=== PATIENT | female | born 1980 | race Caucasian/White ===

== ENCOUNTER 2016-12-20 15:20 | Inpatient (IN) | payer MEDICAID ==
[~2016-12-20] VITALS: Ht 157.5 cm; Wt 65.0 kg
[~2016-12-20 15:20] MED LIST: METF500T4 PO
[2016-12-20 16:03] VITALS: Ht 157.5 cm; Wt 65.0 kg
[2016-12-20 16:05] VITALS: BP 110/60; PULSE 77; RESP 20
[2016-12-20] MEDS ORDERED: MAGNESIUM SULFATE 4 GM/100 ML 100 ML IV ONE (16:30)
[2016-12-20] MEDS ORDERED: ONDANSETRON 4 MG INJ IV PRN (16:30)
[2016-12-20] MEDS: LACTATED RINGER'S 1,000 ML IV SCH (16:41)
[2016-12-20] MEDS: BETAMET NA PHOS/AC(6 MG/ML) 5ML INJ IM SCH (16:41)
[2016-12-20] MEDS: MAGNESIUM SULFATE 20 GM/500 ML 500 ML IV SCH (17:08)
[2016-12-20 17:34] LABS: ADD SCAN DIFF NO
[2016-12-20 17:36] LABS: BASOPHIL # 0.1 10^3/ul (0.0-0.1); BASOPHILS % 0.7 % (0.0-2.0); EOSINOPHILS # 0.2 10^3/ul (0.0-0.5); EOSINOPHILS % 2.2 % (0.0-7.0); HEMATOCRIT 37.5 % (37.0-47.0); HEMOGLOBIN 12.2 g/dl (12.0-16.0); LYMPHOCYTES # 2.1 10^3/ul (0.8-2.9); LYMPHOCYTES % 18.8 % (15.0-51.0); MEAN CORPUSCULAR HEMOGLOBIN 29.6 pg (29.0-33.0); MEAN CORPUSCULAR HGB CONC 32.5 g/dl (32.0-37.0); MEAN PLATELET VOLUME 9.1 fl (7.4-10.4); MONOCYTE # 0.8 10^3/ul (0.3-0.9); MONOCYTES % 6.8 % (0.0-11.0); NEUTROPHIL # 7.7 10^3/ul (1.6-7.5); NEUTROPHILS % 70.5 % (39.0-77.0); PLATELET COUNT 292 10^3/UL (140-415); RED BLOOD COUNT 4.12 10^6/ul (4.20-5.40); RED CELL DISTRIBUTION WIDTH 13.9 % (11.5-14.5)
[2016-12-20 17:46] LABS: INR 1.02; PROTIME 13.4 Sec (12.2-14.2)
[2016-12-20 17:47] LABS: PARTIAL THROMBOPLASTIN TIME 24.6 Sec (25.0-35.0)
[2016-12-20 17:54] LABS: ALBUMIN 3.4 g/dl (3.3-4.9); BILIRUBIN,INDIRECT 0.2 mg/dl (0-1.1); BILIRUBIN,TOTAL 0.2 mg/dl (0.2-1.3); CALCIUM 8.4 mg/dl (8.4-10.2); CREATININE 0.55 mg/dl (0.44-1.00); POTASSIUM 4.1 mmol/L (3.5-5.1); TOTAL PROTEIN 6.8 g/dl (6.1-8.1)
[2016-12-20 18:42] LABS: ADD UMIC NO; URINE BILIRUBIN (Dip) NEGATIVE (NEGATIVE); URINE BLOOD (Dip) NEGATIVE (NEGATIVE); URINE COLOR LT. YELLOW (YELLOW); URINE GLUCOSE (Dip) NEGATIVE (NEGATIVE); URINE KETONES (Dip) 15 (NEGATIVE); URINE LEUKOCYTE ESTERASE (Dip) NEGATIVE (NEGATIVE); URINE NITRITE (Dip) NEGATIVE (NEGATIVE); URINE TOTAL PROTEIN (Dip) NEGATIVE (NEGATIVE); URINE UROBILINOGEN (Dip) 0.2 E.U./dL (0.1-1.0)
[2016-12-21] MEDS: MAGNESIUM SULFATE 20 GM/500 ML 500 ML IV SCH ×3 (02:18→21:52)
[2016-12-21] MEDS: LACTATED RINGER'S 1,000 ML IV SCH ×2 (03:08→16:39)
[2016-12-21] MEDS: FERROUS SULFATE (EC) 325 MG TAB PO SCH (08:59)
[2016-12-21] MEDS: DOCUSATE SODIUM 100 MG CAP PO SCH (08:59)
[2016-12-21] MEDS: MULTIVIT/MIN/FOLATE/IRON/PREN TAB PO SCH (08:59)
[2016-12-21] MEDS: ACETAMINOPHEN 325 MG TAB PO PRN (10:49)
--- NOTE | 2016-12-21 13:54 | CONS ---
DATE OF ADMISSION: 12/20/2016 DATE OF CONSULTATION: REFERRING PHYSICIAN: Brad Isidro MD HISTORY OF PRESENT ILLNESS: I was asked to talk with this mother who is 24.6 weeks with tw ins in labor with short cervix of 1.2 cm. I reviewed the chart. Mother is a 35-year-old 2, para 1, AB 0, living 1, with good care. EDC 04/05/2017. Mother's blood type is O positive, antibody negative, RPR nonreactive, HBsA g negative, rubella immune, HIV negative and GBS unknown. Estimated weight for twin A is 675 grams and twin B is 647 grams. They are dichorionic-diamniotic twins per the ultrasound. Mother is on magnesium sulfate and received 1 dose of betamethasone on 12/20/2016 at 1645 hours. I spoke with mother about the infants being extremely premature with extreme low weight and tw ins and being at risk for respiratory distress syndrome as well as risk for apnea. I discussed with the parents about CPAP administration, as well as oxygen administration, nasal IMV and possibly the need for intubation if the infants are extremely premature, also ventilatory therapy. Discussed ab out the risks and benefits of ventilatory therapy including risk for chronic lung disease, risk of i nfection and requirement for possible long-term ventilatory support. I also discussed about diureti c administration, risk for chronic lung disease and possible discharge home on oxygen. I also discu ssed about risk of apnea and treatment with caffeine and nasal IMV as well as CPAP. Discussed about risk of patent ductus arteriosus and treatment with indomethacin as well as possible ligation if un successful with indomethacin. Discussed about risk of intraventricular hemorrhage which is extremel y high at 24 weeks and also high risk for neurodevelopmental delay. Discussed about grading of intr aventricular hemorrhage and increased risk of developmental delay based on intraventricular hemorrha ge. Discussed about IV nutrition with TPN as well as Intralipids and feedings to be started when th e infant's respiratory status is stable. Discussed about tube feedings as well as benefits of breas t milk. Discussed about tube feedings initially to be followed by bottle and breast feeding as the approaches close to 33 to 34 weeks. Discussed about gastroesophageal reflux as well as risk for necrotizing enterocolitis. Discussed about the infants being on antibiotics initially and subse quently to be monitored for risk for infection and high risk of infection including mortality and mo rbidity at this extreme prematurity. Discussed about the procedures including umbilical arterial catheterization as well as umbilical adia ous catheterization and PICC line placement and risks and benefits of the procedures. I also discus sed about the possible requirement of several blood transfusions as well as blood products including platelet transfusions and FFP if needed. Discussed about the survival of 50 to 70% at 24 weeks' gestation and increasing survival with increa sing gestational age. I also discussed about mortality as well as morbidity and length of stay. Discussed about the risks and benefits of hospitalization and risk for oxygen dependency, retinopath y of prematurity, and neurodevelopmental delay at the time of discharge if the infants survive throu gh the period. All parent's questions were answered. Parents were very concerned about ex treme risk of mortality as well as morbidity. As parents had no further questions, the discussion was concluded. Thank you for the referral and we will continue to follow with you. Dictated By: EULALIA ZHU/ARLETTE Conf#: [id number] DID#: [id number]
--- NOTE | 2016-12-21 15:26 | PERINOTE ---
Date/Time of Note Date/Time of Note DATE: 12/21/16 TIME: 15:20 Assessment/Recommendations Other Assessments Patient with a short cervix at 25 weeks GA No current complaint of contractions Recommendations: Would continue current plan. When betamethasone is complete, would D/C magnesium and repeat the cervical length measurement. If the cervical length is not significantly changed, could consider discharging the patient to home on modified bedrest. OB Subjective Free Text/Dictaton Patient with twin admitted with a short cervix for betamethasone treatment and tocolysis. NOTE: chart states that the patient is allergic to penicillin. she states that this is an error. HD# 2 IUP @ 25weeks Complaints/Overnight events None Current Medications Current Medications Lactated Ringer's 1,000 ml @ 75 mls/hr [id number] IV Last administered on 03:08; Admin Dose 75 MLS/HR; Start 12/20/16 at 16:30 Magnesium Sulfate (Magnesium Sulfate 20 Gm/500 ml) 500 ml @ 50 mls/hr Q10H IV Last administered on 12/21/16 12:17; Admin Dose 50 MLS/HR; Start 12/20/16 at 17: 00 Betamethasone Acet/Betameth SodPhos (Celestone Soluspan) 12 mg Q24H IM Last administered on 12/20/16 16:41; Admin Dose 12 MG; Start 12/20/16 at 16:30; Stop 12/21/16 at 16:31 Prenat Multivit/ [place]/Iron/Folic Ac ( S) 1 tab DAILY PO Last administered on 12/21/16 08:59; Admin Dose 1 TAB; Start 12/21/16 at 09:00 Ferrous Sulfate (Ferrous Sulfate (Ec)) 325 mg DAILY PO Last administered on 12/21 08:59; Admin Dose 325 MG; Start 12/21/16 at 09:00 Docusate Sodium (Colace) 100 mg DAILY PO Last administered on 12/21/16 08:59; Admin Dose 100 MG; Start 12/21/16 at 09:00 Acetaminophen (Tylenol Tab) 650 mg Q4H PRN PO PAIN AND OR ELEVATED TEMP Last administered on 12/21/16 10:49; Admin Dose 650 MG; Start 12/20/16 at 16:30 Al Hydrox/Mg Hydrox/Simethicone (Mag-Al Plus) 30 ml Q6H PRN PO GASTROINTESTINAL UPSET; Start 12/20/16 at 16:30 Ondansetron HCl (Zofran Inj) 4 mg Q6H PRN IV NAUSEA AND/OR VOMITING; Start 12/20 at 16:30 Past Medical History Medical History: other (Gestational diabetes with her first ) Surgical History: no surgical history Para: 1 : 2 LMP (Females 10-50): Family History Significant Family History: heart disease, diabetes OB Admission Exam Physical Exam Vitals: Vital Signs Date Time Temp Pulse Resp B/P Pulse Ox O2 Delivery O2 Flow Rate FiO2 12/20/16 16:05 98.2 77 20 110/60 Room Air Abdomen: WNL Last 72 hours Lab Results CBC & BMP 12/20/16 17:25 Liver Function Test 12/20/16 17:25 Alanine Aminotransferase (ALT/SGPT) 27 Albumin 3.4 Alkaline Phosphatase 107 Aspartate Amino Transf (AST/SGOT) 22 Direct Bilirubin 0.00 Total Protein 6.8 Magnesium Level Test 12/21/16 00:41 12/21/16 05:58 12/21/16 12:40 Magnesium Level 5.3 *H 5.9 *H 5.7 *H Copies To: CC: RICH TURNER MD, MARIE H MD Dec 21, 2016 15:26
[2016-12-21] MEDS: BETAMET NA PHOS/AC(6 MG/ML) 5ML INJ IM SCH (16:34)
--- NOTE | 2016-12-21 22:07 | HP ---
Date/Time of Note Date/Time of Note DATE: 12/21/16 TIME: 21:56 OB - History Hx of Present Free Text/Dictation 36 y.o with twin gestation at 25weeks was admitted for short cervix 1.2cm discovered at clinic .no c/o uterine conractions perinatalogist recommaned for betamethasone and magnesium sulfate and repeat cervical length after d/c magnesium sulfate Chief Complaint: short cervix Estimated Due Date: Apr 05, 2017 : 2 Para: 1 Spontaneous : 0 Therapeutic : 0 Care: Good Care Ultrasounds: Normal mid trimester US Obstetrical Complications: Other (hypothyroidism) Past Family/Social History * Past Medical, Surgical, Family and Obstetric Histories reviewed from chart. Blood Type: O+ Rubella: immune RPR/VDRL: Negative GBS Status: Unknown HBsAG: Negative OB Admission Exam Vital Signs Vital Signs Vital Signs Date Time Temp Pulse Resp B/P Pulse Ox O2 Delivery O2 Flow Rate FiO2 12/20/16 16:05 98.2 77 20 110/60 Room Air Physical Exam HEENT: WNL Heart: Rhythm Normal Lungs: Clear, Equal Abdomen: WNL Extremities: Normal Reflexes: Normal Cervical Dilatation: other Effacement: 75% Station: Ballotable Membranes: Intact Amniotic Fluid: Unevaluable Accelerations: Accelerations Present Decelerations: No Decelerations Varibility: Minimum Contractions on Admission: None Last 72 hours Lab Results CBC & BMP 12/20/16 17:25 Liver Function Test 12/20/16 17:25 Alanine Aminotransferase (ALT/SGPT) 27 Albumin 3.4 Alkaline Phosphatase 107 Aspartate Amino Transf (AST/SGOT) 22 Direct Bilirubin 0.00 Total Protein 6.8 Hemoglobin A1C Test 12/21/16 19:05 Hemoglobin A1c 5.0 Magnesium Level Test 12/21/16 00:41 12/21/16 05:58 12/21/16 12:40 12/21/16 19:05 Magnesium Level 5.3 *H 5.9 *H 5.7 *H 5.6 *H OB Assessment/Plan Reason for admission: other Other Assessment: IUP25w with short cervix s/p x2 betamethasone on magnesium sulfate hypothyroidism Other plan: d/c magnesium sulfate tomorrow 1650 repeat cervical length RICH TURNER MD Dec 21, 2016 22:07
[2016-12-22] MEDS: LACTATED RINGER'S 1,000 ML IV SCH ×2 (04:51→18:09)
[2016-12-22] MEDS: MAGNESIUM SULFATE 20 GM/500 ML 500 ML IV SCH (07:46)
[2016-12-22] MEDS: DOCUSATE SODIUM 100 MG CAP PO SCH (08:44)
[2016-12-22] MEDS: FERROUS SULFATE (EC) 325 MG TAB PO SCH (08:44)
[2016-12-22] MEDS: MULTIVIT/MIN/FOLATE/IRON/PREN TAB PO SCH (08:44)
[2016-12-22] MEDS: POLYETHYLENE GLYCOL 17 GM PACKET PO SCH ×2 (09:00→11:37)
--- NOTE | 2016-12-22 18:25 | PN ---
Date/Time of Note Date/Time of Note DATE: 12/22/16 TIME: 18:20 OB Subjective Subjective Subjective no uterine contractions no pressure sensation no b.m OB Objective Objective Objective EFM no uc OB Assessment/Plan Other Assessment: [id number] TWIN GESTATION SHORT CERVIX S/P X2 BETAMETHASONE S/P MAGNESIUM SULFATE Other plan: CERVICAL LENGTH IN AM POSS DISCHARGE RICH TURNER MD Dec 22, 2016 18:24
[2016-12-22] MEDS ORDERED: POLYETHYLENE GLYCOL 17 GM PACKET PO ONE (18:30)
[2016-12-23] MEDS ORDERED: LACTATED RINGER'S 500 ML IV ONE (02:00)
[2016-12-23] MEDS: LACTATED RINGER'S 1,000 ML IV SCH ×3 (03:16→17:53)
[2016-12-23] MEDS: MULTIVIT/MIN/FOLATE/IRON/PREN TAB PO SCH (08:49)
[2016-12-23] MEDS: FERROUS SULFATE (EC) 325 MG TAB PO SCH (08:49)
[2016-12-23] MEDS: DOCUSATE SODIUM 100 MG CAP PO SCH (08:49)
--- NOTE | 2016-12-23 08:54 | RADRPT ---
PROCEDURE: US OB limited. Ultrasound cervix CLINICAL INDICATION: decreased movements , short cervix TECHNIQUE: Multiple sonographic images of the pelvis were obtained. The images were reviewed on a PACS workstation. In addition ultrasound images of the cervix were obtained. COMPARISON: No prior studies are available for comparison. FINDINGS: There is a twin viable intrauterine gestation. The cervix is closed and measures 1.3 cm in length. Twin A Cardiac activity is present with 146 beats per minute. There is a vertex presentation. The placenta is posterior. Twin B Cardiac activity is present with 144 beats per minute. There is a breech presentation. The placenta is anterior. RPTAT: AA . IMPRESSION: Twin gestation . Short cervix. . .Pritesh Mims MD, MD Date Time Electronically viewed and signed by .Pritesh Mims MD, on 12/23/2016 08:54 .S/
[2016-12-23] MEDS: NIFEdipine 10 MG CAP PO SCH ×2 (17:20→23:51)
--- NOTE | 2016-12-23 18:38 | PN ---
Date/Time of Note Date/Time of Note DATE: 12/23/16 TIME: 18:27 OB Subjective Subjective Subjective had bowel movement after miralax not feeling uterine contraction OB Objective Objective Objective EFM uterine contractions q2-3 min OB Assessment/Plan Other Assessment: IUP 25W2D SHORT CERVIX PTL Other plan: BED REST RICH TURNER MD Dec 23, 2016 18:37
[2016-12-23] MEDS: ACETAMINOPHEN 325 MG TAB PO PRN (19:33)
[2016-12-24] MEDS: LACTATED RINGER'S 1,000 ML IV SCH ×3 (02:10→18:06)
[2016-12-24] MEDS: NIFEdipine 10 MG CAP PO SCH ×3 (06:07→17:44)
[2016-12-24] MEDS: POLYETHYLENE GLYCOL 17 GM PACKET PO SCH (08:20)
[2016-12-24] MEDS: FERROUS SULFATE (EC) 325 MG TAB PO SCH (08:20)
[2016-12-24] MEDS: MULTIVIT/MIN/FOLATE/IRON/PREN TAB PO SCH (08:20)
[2016-12-24] MEDS: DOCUSATE SODIUM 100 MG CAP PO SCH (08:20)
[2016-12-24] MEDS: ACETAMINOPHEN 325 MG TAB PO PRN (16:03)
--- NOTE | 2016-12-24 20:45 | PN ---
Date/Time of Note Date/Time of Note DATE: 12/24/16 TIME: 20:43 OB Subjective Subjective Subjective NO C/O OB Objective Objective Objective EFM no uterine contractions OB Assessment/Plan Other Assessment: 25w3d twin gestation short cervix Other plan: continue current management RICH TURNER MD Dec 24, 2016 20:45
[2016-12-25] MEDS: NIFEdipine 10 MG CAP PO SCH ×4 (00:08→18:03)
[2016-12-25] MEDS: LACTATED RINGER'S 1,000 ML IV SCH ×3 (02:26→19:33)
--- NOTE | 2016-12-25 07:26 | PN ---
Date/Time of Note Date/Time of Note DATE: 12/25/16 TIME: 07:22 OB Subjective Subjective Subjective uterine contractions ? sleeping through OB Objective Objective Objective EFM uterine contrations 3-7 min apart OB Assessment/Plan Other Assessment: IUP 25w4d short cervix Other plan: continue with sane management RICH TURNER MD Dec 25, 2016 07:26
[2016-12-25] MEDS: FERROUS SULFATE (EC) 325 MG TAB PO SCH (09:06)
[2016-12-25] MEDS: MULTIVIT/MIN/FOLATE/IRON/PREN TAB PO SCH (09:06)
[2016-12-25] MEDS: DOCUSATE SODIUM 100 MG CAP PO SCH (09:06)
[2016-12-25] MEDS: POLYETHYLENE GLYCOL 17 GM PACKET PO SCH (09:06)
[2016-12-26] MEDS: NIFEdipine 10 MG CAP PO SCH ×4 (00:11→18:25)
[2016-12-26] MEDS: LACTATED RINGER'S 1,000 ML IV SCH ×3 (03:32→18:26)
[2016-12-26] MEDS: MULTIVIT/MIN/FOLATE/IRON/PREN TAB PO SCH (09:16)
[2016-12-26] MEDS: FERROUS SULFATE (EC) 325 MG TAB PO SCH (09:16)
[2016-12-26] MEDS: POLYETHYLENE GLYCOL 17 GM PACKET PO SCH (09:16)
[2016-12-26] MEDS: DOCUSATE SODIUM 100 MG CAP PO SCH (09:16)
--- NOTE | 2016-12-26 22:18 | PN ---
Date/Time of Note Date/Time of Note DATE: 12/26/16 TIME: 22:05 OB Subjective Subjective Subjective every now and then feels uterine contractions but irregularly OB Objective Objective Objective EFM irregular u.c here and there OB Assessment/Plan Other Assessment: 25w5d twin gestation short cervix r/o ptl Other plan: on procardia poss magnesium sulfate if u.c regular spoke to perinatalogist ( dr chowdhury) who suggested RICH TURNER MD Dec 26, 2016 22:16
[2016-12-27] MEDS: NIFEdipine 10 MG CAP PO SCH ×4 (00:02→17:43)
[2016-12-27] MEDS: LACTATED RINGER'S 1,000 ML IV SCH ×3 (02:28→17:47)
[2016-12-27] MEDS: MULTIVIT/MIN/FOLATE/IRON/PREN TAB PO SCH (08:52)
[2016-12-27] MEDS: POLYETHYLENE GLYCOL 17 GM PACKET PO SCH (08:52)
[2016-12-27] MEDS: DOCUSATE SODIUM 100 MG CAP PO SCH (08:52)
[2016-12-27] MEDS: FERROUS SULFATE (EC) 325 MG TAB PO SCH (08:52)
--- NOTE | 2016-12-27 14:56 | PN ---
Date/Time of Note Date/Time of Note DATE: 12/27/16 TIME: 14:53 OB Subjective Subjective Subjective still occasional uterine contractions OB Objective Objective Objective EFM uterine contractions 25min here and there OB Assessment/Plan Other Assessment: 25weeks 5days short cervix on procardia s/p betamethasone and mg Other plan: cervical length RICH TURNER MD Dec 27, 2016 14:56
--- NOTE | 2016-12-27 16:29 | RADRPT ---
PROCEDURE: Limited obstetric ultrasound CLINICAL INDICATION: Pain , short cervix TECHNIQUE: Multiple transverse and longitudinal grayscale images of the pelvis were obtained page sabdominally and transvaginally.. COMPARISON: 12/23/2016 FINDINGS: The cervix has a length of 1.7 cm. There is a trace amount of fluid within the cervix measuring up t o 1.5 mm. RPTAT: AA IMPRESSION: Cervix length measures 1.7 cm. Trace amount of fluid within the cervix measuring up to 1.5 mm. .Pritesh Mims MD, MD Date Time Electronically viewed and signed by .Pritesh Mims MD, on 12/27/2016 16:29 .S/
[2016-12-27 22:52] LABS: TSH RECEPTOR ANTIBODY <1 (< OR = 16)
[2016-12-28] MEDS: NIFEdipine 10 MG CAP PO SCH ×4 (00:05→17:50)
[2016-12-28] MEDS: LACTATED RINGER'S 1,000 ML IV SCH ×2 (01:46→09:55)
[2016-12-28] MEDS: POLYETHYLENE GLYCOL 17 GM PACKET PO SCH (07:48)
[2016-12-28] MEDS: FERROUS SULFATE (EC) 325 MG TAB PO SCH (08:51)
[2016-12-28] MEDS: DOCUSATE SODIUM 100 MG CAP PO SCH (08:51)
[2016-12-28] MEDS: MULTIVIT/MIN/FOLATE/IRON/PREN TAB PO SCH (08:51)
--- NOTE | 2016-12-28 13:59 | PN ---
Date/Time of Note Date/Time of Note DATE: 12/28/16 TIME: 13:57 OB Subjective Subjective Subjective feels ok no c/o contractions OB Objective Objective Objective cevical length 1.3 EFM no uterine activities OB Assessment/Plan Other Assessment: IUP 26w Short cervix stable Other plan: d/c IV RICH TURNER MD Dec 28, 2016 13:59
[2016-12-29] MEDS: NIFEdipine 10 MG CAP PO SCH ×4 (00:29→17:36)
[2016-12-29] MEDS: MULTIVIT/MIN/FOLATE/IRON/PREN TAB PO SCH (08:31)
[2016-12-29] MEDS: DOCUSATE SODIUM 100 MG CAP PO SCH (08:31)
[2016-12-29] MEDS: FERROUS SULFATE (EC) 325 MG TAB PO SCH (08:31)
[2016-12-29] MEDS: POLYETHYLENE GLYCOL 17 GM PACKET PO SCH (09:00)
[2016-12-30] MEDS: NIFEdipine 10 MG CAP PO SCH ×5 (00:12→17:48)
[2016-12-30] MEDS: FERROUS SULFATE (EC) 325 MG TAB PO SCH (08:33)
[2016-12-30] MEDS: MULTIVIT/MIN/FOLATE/IRON/PREN TAB PO SCH (08:33)
[2016-12-30] MEDS: DOCUSATE SODIUM 100 MG CAP PO SCH (08:33)
[2016-12-30] MEDS: POLYETHYLENE GLYCOL 17 GM PACKET PO SCH ×2 (09:00→09:15)
[2016-12-30] MEDS: ACETAMINOPHEN 325 MG TAB PO PRN (12:20)
--- NOTE | 2016-12-30 17:18 | PN ---
Date/Time of Note Date/Time of Note DATE: 12/30/16 TIME: 17:15 OB Subjective Subjective Subjective had few uterine contractions but feels ok OB Objective Objective Objective cervical lenth stable HEENT: WNL Heart: Rhythm Normal Lungs: Clear, Equal Abdomen: WNL Extremities: Normal Reflexes: Normal OB Assessment/Plan Other Assessment: IUP 26w2d twin gestation short cervix abnormal 1hr gtt Other plan: 3hr gtt modified bed rest RICH TURNER MD Dec 30, 2016 17:18
[2016-12-31] MEDS: NIFEdipine 10 MG CAP PO SCH ×5 (00:10→23:53)
[2016-12-31] MEDS: FERROUS SULFATE (EC) 325 MG TAB PO SCH (08:46)
[2016-12-31] MEDS: DOCUSATE SODIUM 100 MG CAP PO SCH (08:46)
[2016-12-31] MEDS: MULTIVIT/MIN/FOLATE/IRON/PREN TAB PO SCH (08:46)
[2016-12-31] MEDS: POLYETHYLENE GLYCOL 17 GM PACKET PO SCH (08:48)
--- NOTE | 2016-12-31 23:56 | PN ---
Date/Time of Note Date/Time of Note DATE: 12/31/16 TIME: 23:54 OB Subjective Subjective Subjective occ uterine contractions not significant OB Objective Objective Objective efm no uterine activities OB Assessment/Plan Other Assessment: IUP 26w3d short cervix Other plan: continue current management RICH TURNER MD Dec 31, 2016 23:56
[2017-01-01] MEDS: NIFEdipine 10 MG CAP PO SCH ×3 (06:04→17:35)
--- NOTE | 2017-01-01 07:37 | PN ---
Date/Time of Note Date/Time of Note DATE: 01/01/17 TIME: 07:35 OB Subjective Subjective Subjective no c/o OB Objective Objective Objective vss afebrile no uterine activity on EFM OB Assessment/Plan Other Assessment: [id number] short cervix Other plan: continue current management RICH TURNER MD Jan 01, 2017 07:37
[2017-01-01] MEDS: POLYETHYLENE GLYCOL 17 GM PACKET PO SCH (09:16)
[2017-01-01] MEDS: MULTIVIT/MIN/FOLATE/IRON/PREN TAB PO SCH (09:16)
[2017-01-01] MEDS: DOCUSATE SODIUM 100 MG CAP PO SCH (09:16)
[2017-01-01] MEDS: FERROUS SULFATE (EC) 325 MG TAB PO SCH (09:16)
[2017-01-02] MEDS: NIFEdipine 10 MG CAP PO SCH ×4 (00:03→17:31)
[2017-01-02] MEDS: FERROUS SULFATE (EC) 325 MG TAB PO SCH (09:04)
[2017-01-02] MEDS: DOCUSATE SODIUM 100 MG CAP PO SCH (09:04)
[2017-01-02] MEDS: POLYETHYLENE GLYCOL 17 GM PACKET PO SCH (09:05)
[2017-01-02] MEDS: MULTIVIT/MIN/FOLATE/IRON/PREN TAB PO SCH (09:05)
--- NOTE | 2017-01-02 13:29 | PN ---
Date/Time of Note Date/Time of Note DATE: 01/02/17 TIME: 13:22 OB Subjective Subjective Subjective no significant uterine contractions OB Objective Objective Objective vss afebrile EFM no uterine activities 3hr GTT abnormal FBS 89 this am 2hrpost prandial 122 calf neg for tenderness HEENT: WNL Heart: Rhythm Normal Lungs: Clear, Equal Abdomen: WNL Extremities: Normal Reflexes: Normal OB Assessment/Plan Other Assessment: Twin gestation 26w4d short cervix stable Other plan: continue current management FBS 2hr postprandial with 2000cal ADA diet HbA1c RICH TURNER MD Jan 02, 2017 13:29
--- NOTE | 2017-01-02 13:32 | EN ---
Date/Time of Note Date/Time of Note DATE: 01/02/17 TIME: 13:30 Event Note Surgery Surgery Event Note due to 3hr GTT abnormal FBS and 2 hrpostprandial BS with 2000cal ADAdiet HbA1c RICH TURNER MD Jan 02, 2017 13:32
[2017-01-03] MEDS: NIFEdipine 10 MG CAP PO SCH ×2 (00:01→05:50)
[2017-01-03] MEDS ORDERED: MAGNESIUM SULFATE 4 GM/100 ML 100 ML IVPB ONE ×2 (03:00→04:00)
[2017-01-03] MEDS: LACTATED RINGER'S 1,000 ML IV SCH ×2 (03:46→16:46)
[2017-01-03] MEDS: MAGNESIUM SULFATE 20 GM/500 ML 500 ML IV SCH ×2 (04:25→13:31)
[2017-01-03] MEDS: FERROUS SULFATE (EC) 325 MG TAB PO SCH (08:39)
[2017-01-03] MEDS: MULTIVIT/MIN/FOLATE/IRON/PREN TAB PO SCH (08:39)
[2017-01-03] MEDS: DOCUSATE SODIUM 100 MG CAP PO SCH (08:39)
[2017-01-03] MEDS: POLYETHYLENE GLYCOL 17 GM PACKET PO SCH (08:39)
[2017-01-03] MEDS: ACCU-CHEK XX SCH ×3 (10:17→22:32)
[2017-01-03] MEDS ORDERED: GLUCAGON 1 MG INJ IM PRN (10:30)
[2017-01-03] MEDS ORDERED: GLUCOSE GEL 15 GRAM TUBE BUCCAL PRN (10:30)
[2017-01-03] MEDS ORDERED: GLUCOSE GEL 15 GRAM TUBE PO PRN ×2 (10:30)
[2017-01-03] MEDS ORDERED: DEXTROSE 50% 50 ML SYRINGE IV PRN ×2 (10:30)
--- NOTE | 2017-01-03 12:32 | RADRPT ---
PROCEDURE: US OB biophysical profile. CLINICAL INDICATION: decreased movements TECHNIQUE: Multiple sonographic images of the pelvis were obtained. The images were reviewed on a PACS workstation. COMPARISON: 12/27/2016 FINDINGS: There is a twin viable intrauterine gestation. Twin A Cardiac activity is present with 144 beats per minute. There is a breech presentation. The placenta is posterior. MVP = 5.0 cm Biophysical profile: movement 2/2 tone 2/2. breathing 2/2 GARCIA 2/2 Total 8/8 Twin B Cardiac activity is present with 146 beats per minute. There is a transverse maternal right presentation. The placenta is anterior. MVP = 7.1 cm Biophysical profile: movement 2/2 tone 2/2. breathing 2/2 GARCIA 2/2 Total 8/8 RPTAT: AA . IMPRESSION: Normal biophysical profile for twin gestation . . .Pritesh Mims MD, MD Date Time Electronically viewed and signed by .Pritesh Mims MD, MD on 01/03/2017 12:32 .S/
--- NOTE | 2017-01-03 14:25 | PN ---
Date/Time of Note Date/Time of Note DATE: 01/03/17 TIME: 14:22 OB Subjective Subjective Subjective early this morning had uterine activity increased ,become symptomatic OB Objective Objective Objective EFM frequent uc at present quiet down OB Assessment/Plan Other Assessment: twin gestation 26w5d short cervix labor Other plan: magnesium sulfate RICH TURNER MD Jan 03, 2017 14:25
[2017-01-03] MEDS ORDERED: MAGNESIUM SULFATE 20 GM/500 ML 500 ML IV SCH (17:15)
[2017-01-03] MEDS: AL HYDROX/MG HYDROX/SIMETH 30 ML CUP PO PRN (17:18)
[2017-01-04] MEDS ORDERED: MAGNESIUM SULFATE 20 GM/500 ML 500 ML IV SCH (05:30)
[2017-01-04] MEDS: NIFEdipine 10 MG CAP PO SCH ×4 (06:04→23:45)
[2017-01-04] MEDS: LACTATED RINGER'S 1,000 ML IV SCH (06:53)
[2017-01-04] MEDS: ACCU-CHEK XX SCH ×4 (07:46→19:48)
[2017-01-04] MEDS: FERROUS SULFATE (EC) 325 MG TAB PO SCH (07:47)
[2017-01-04] MEDS: MULTIVIT/MIN/FOLATE/IRON/PREN TAB PO SCH (07:47)
[2017-01-04] MEDS: POLYETHYLENE GLYCOL 17 GM PACKET PO SCH (07:47)
[2017-01-04] MEDS: DOCUSATE SODIUM 100 MG CAP PO SCH (07:47)
--- NOTE | 2017-01-04 13:46 | PN ---
Date/Time of Note Date/Time of Note DATE: 01/04/17 TIME: 13:42 OB Subjective Subjective Subjective no uterineactivities, feels better after reduced magnesium sulfate t 1gm/hr now not on MG OB Objective Objective Objective EFM no uterine contractions OB Assessment/Plan Other Assessment: twin gestation 27w short cervix ptl RICH TURNER MD Jan 04, 2017 13:46
[2017-01-05] MEDS: NIFEdipine 10 MG CAP PO SCH ×4 (06:06→23:45)
[2017-01-05] MEDS: ACCU-CHEK XX SCH ×4 (08:19→19:40)
--- NOTE | 2017-01-05 08:21 | PN ---
Date/Time of Note Date/Time of Note DATE: 01/05/17 TIME: 08:14 OB Subjective Subjective Subjective doing fine OB Objective Objective Objective EFM no uterine contractions OB Assessment/Plan Other Assessment: twin gestation 27w1d short cervix resolved PTL Other plan: continue procardia modified bed rest RICH TURNER MD Jan 05, 2017 08:20
[2017-01-05] MEDS: POLYETHYLENE GLYCOL 17 GM PACKET PO SCH (09:38)
[2017-01-05] MEDS: FERROUS SULFATE (EC) 325 MG TAB PO SCH (09:38)
[2017-01-05] MEDS: DOCUSATE SODIUM 100 MG CAP PO SCH (09:39)
[2017-01-05] MEDS: MULTIVIT/MIN/FOLATE/IRON/PREN TAB PO SCH (09:39)
[2017-01-06] MEDS: LACTATED RINGER'S 1,000 ML IV SCH ×2 (05:37→17:49)
[2017-01-06] MEDS ORDERED: MAGNESIUM SULFATE 4 GM/100 ML 100 ML IV ONE (05:45)
[2017-01-06] MEDS: MAGNESIUM SULFATE 20 GM/500 ML 500 ML IV SCH ×2 (06:15→14:48)
[2017-01-06] MEDS: ACCU-CHEK XX SCH ×3 (08:00→15:00)
[2017-01-06] MEDS: DOCUSATE SODIUM 100 MG CAP PO SCH (08:43)
[2017-01-06] MEDS: MULTIVIT/MIN/FOLATE/IRON/PREN TAB PO SCH (08:43)
[2017-01-06] MEDS: POLYETHYLENE GLYCOL 17 GM PACKET PO SCH (08:43)
[2017-01-06] MEDS: FERROUS SULFATE (EC) 325 MG TAB PO SCH (08:43)
--- NOTE | 2017-01-06 19:01 | PN ---
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
[2017-01-07] MEDS: MAGNESIUM SULFATE 20 GM/500 ML 500 ML IV SCH ×3 (00:34→19:27)
[2017-01-07] MEDS: LACTATED RINGER'S 1,000 ML IV SCH ×2 (06:40→21:04)
[2017-01-07] MEDS: ACCU-CHEK XX SCH ×4 (08:48→19:34)
--- NOTE | 2017-01-07 09:19 | RADRPT ---
PROCEDURE: OBSTETRIC ULTRASOUND FOR TWIN GESTATION WITH ENDOVAGINAL IMAGES CLINICAL INDICATION: short cx with contractions TECHNIQUE: Multiple transverse and longitudinal grayscale images of the pelvis were obtained page sabdominally and endovaginally.. COMPARISON: Obstetrical ultrasound from 01/03/2017 FINDINGS: There are twin live intrauterine gestations. The cervix measures 9 mm in length. Trace endocervical fluid is noted. Baby A There is a heart rate of 134 beats per minute. There is a breech presentation. The placenta is posterior without evidence of a placental abruption or placenta previa. Baby B There is a heart rate of 146 beats per minute. There is a breech presentation. The placenta is anterior without evidence of a placental abruption or placenta previa. RPTAT: AA IMPRESSION: Twin live intrauterine gestations with breech presentations each. The cervix measures 9 mm in length and there is trace endocervical fluid. Physician Dee Date Time Electronically viewed and signed by Physician Dee on 01/07/2017 09:18 /
[2017-01-07] MEDS: POLYETHYLENE GLYCOL 17 GM PACKET PO SCH (09:36)
[2017-01-07] MEDS: FERROUS SULFATE (EC) 325 MG TAB PO SCH (09:36)
[2017-01-07] MEDS: MULTIVIT/MIN/FOLATE/IRON/PREN TAB PO SCH (09:36)
[2017-01-07] MEDS: DOCUSATE SODIUM 100 MG CAP PO SCH (09:36)
[2017-01-07] MEDS ORDERED: POLYETHYLENE GLYCOL 17 GM PACKET PO PRN ×2 (13:30→14:00)
--- NOTE | 2017-01-07 13:36 | PN ---
Date/Time of Note Date/Time of Note DATE: 01/07/17 TIME: 13:33 OB Subjective Subjective Subjective x2 u/c in hr OB Objective Objective Objective cl .9cm EFM x2 u.c/hr OB Assessment/Plan Other Assessment: twin gestation 27w 3d short cervix .9cm ptl Other plan: complete bed rest continue mag sulfate ext to32w RICH TURNER MD Jan 07, 2017 13:36
[2017-01-08] MEDS: MAGNESIUM SULFATE 20 GM/500 ML 500 ML IV SCH ×2 (04:55→17:58)
[2017-01-08] MEDS: ACCU-CHEK XX SCH ×4 (07:30→20:05)
[2017-01-08] MEDS: FERROUS SULFATE (EC) 325 MG TAB PO SCH (09:10)
[2017-01-08] MEDS: POLYETHYLENE GLYCOL 17 GM PACKET PO SCH (09:10)
[2017-01-08] MEDS: DOCUSATE SODIUM 100 MG CAP PO SCH (09:10)
[2017-01-08] MEDS: MULTIVIT/MIN/FOLATE/IRON/PREN TAB PO SCH (09:10)
--- NOTE | 2017-01-08 10:21 | PN ---
Date/Time of Note Date/Time of Note DATE: 01/08/17 TIME: 10:15 OB Subjective Subjective Subjective no feeling of u.c even though efm shows x2/hr patiently enduring the situation OB Objective Objective Objective EFM x2/hruterine activities mg level 6.0 this am OB Assessment/Plan Other Assessment: twin gestation 27w4d short cervix ptl Other plan: continue 1gm mg today complete bed rest RICH TURNER MD Jan 08, 2017 10:21
[2017-01-08] MEDS: LACTATED RINGER'S 1,000 ML IV SCH ×3 (11:55→22:56)
[2017-01-09] MEDS: MAGNESIUM SULFATE 20 GM/500 ML 500 ML IV SCH ×2 (02:00→10:44)
[2017-01-09] MEDS: LACTATED RINGER'S 1,000 ML IV SCH (08:15)
[2017-01-09] MEDS: ACCU-CHEK XX SCH ×4 (08:40→19:23)
[2017-01-09] MEDS: DOCUSATE SODIUM 100 MG CAP PO SCH (10:08)
[2017-01-09] MEDS: FERROUS SULFATE (EC) 325 MG TAB PO SCH (10:08)
[2017-01-09] MEDS: MULTIVIT/MIN/FOLATE/IRON/PREN TAB PO SCH (10:08)
[2017-01-09] MEDS: POLYETHYLENE GLYCOL 17 GM PACKET PO SCH (10:09)
[2017-01-09] MEDS ORDERED: MAGNESIUM HYDROXIDE 30ML CUP PO SCH (10:30)
--- NOTE | 2017-01-09 17:43 | PN ---
Date/Time of Note Date/Time of Note DATE: 01/09/17 TIME: 17:39 OB Subjective Subjective Subjective had b.m had x7 u.c /hr this am but no uc at present OB Objective Objective Objective EFM no u.c OB Assessment/Plan Other Assessment: IUP 27w 5d twin gestation short cervix PTL Other plan: d/c magnesium with IV RICH TURNER MD Jan 09, 2017 17:42
[2017-01-09] MEDS: NIFEdipine 10 MG CAP PO SCH (18:12)
[2017-01-10] MEDS: NIFEdipine 10 MG CAP PO SCH ×6 (06:00→18:03)
[2017-01-10] MEDS: ACCU-CHEK XX SCH ×4 (07:43→21:03)
[2017-01-10] MEDS: FERROUS SULFATE (EC) 325 MG TAB PO SCH (08:57)
[2017-01-10] MEDS: DOCUSATE SODIUM 100 MG CAP PO SCH (08:57)
[2017-01-10] MEDS: MULTIVIT/MIN/FOLATE/IRON/PREN TAB PO SCH (08:57)
[2017-01-10] MEDS: POLYETHYLENE GLYCOL 17 GM PACKET PO SCH (08:57)
--- NOTE | 2017-01-10 10:19 | PN ---
Date/Time of Note Date/Time of Note DATE: 01/10/17 TIME: 10:17 OB Subjective Subjective Subjective feeling no uterine contractions OB Objective Objective Objective EFM 2-3 uc/hr bs nl OB Assessment/Plan Other Assessment: IUP 27w 6d twin gest short cx PTL GDM A1 Other plan: GARCIA CL RICH TURNER MD Jan 10, 2017 10:19
--- NOTE | 2017-01-10 10:24 | RADRPT ---
PROCEDURE: OB ultrasound, twin gestations CLINICAL INDICATION: . OB ultrasound with fluid volume assessment. TECHNIQUE: Sonographic evaluation to assess the amniotic fluid volume was performed. Transabdomin al and transvaginal imaging of the gravid uterus was performed. COMPARISON: Cervical ultrasound 01/07/2017, OB ultrasound 01/03/2017 FINDINGS: TWIN A Maximum vertical fluid pocket 5.4 cm heart rate: 144 Beats per minute. Presentation: Breech Placenta posterior TWIN B Maximum vertical fluid pocket 5.0 cm heart rate: 135 Beats per minute. Presentation: Transverse maternal left Placenta anterior Cervical length as visualized transvaginally 0.57 cm. No evidence of placenta previa or abruption is seen. IMPRESSION: TWIN A Maximum vertical fluid pocket 5.4 cm Presentation: Breech TWIN B Maximum vertical fluid pocket 5.0 cm Presentation: Transverse maternal left Cervical length as visualized transvaginally 5.7 mm; previously measured 9mm in length. Results were discussed with Nurse Coto by telephone at 1020 hours on 01/10/[address] Devon collazo RPTAT: AADD .Devon Humphrey MD, Date Time Electronically viewed and signed by .Devon Humphrey MD, on 01/10/2017 10:24 .B/
[2017-01-10] MEDS: LACTATED RINGER'S 1,000 ML IV SCH (23:25)
[2017-01-10] MEDS: MAGNESIUM SULFATE 20 GM/500 ML 500 ML IV SCH (23:38)
[2017-01-11] MEDS: ACCU-CHEK XX SCH ×4 (07:45→19:47)
[2017-01-11] MEDS: POLYETHYLENE GLYCOL 17 GM PACKET PO SCH (08:38)
[2017-01-11] MEDS: FERROUS SULFATE (EC) 325 MG TAB PO SCH (08:38)
[2017-01-11] MEDS: MULTIVIT/MIN/FOLATE/IRON/PREN TAB PO SCH (08:38)
[2017-01-11] MEDS: DOCUSATE SODIUM 100 MG CAP PO SCH (08:38)
[2017-01-11] MEDS: MAGNESIUM SULFATE 20 GM/500 ML 500 ML IV SCH ×2 (08:41→19:47)
[2017-01-11] MEDS: ACETAMINOPHEN 325 MG TAB PO PRN (08:42)
[2017-01-11] MEDS: LACTATED RINGER'S 1,000 ML IV SCH (11:16)
[2017-01-12] MEDS: LACTATED RINGER'S 1,000 ML IV SCH ×2 (01:42→14:56)
[2017-01-12] MEDS: MAGNESIUM SULFATE 20 GM/500 ML 500 ML IV SCH ×2 (06:36→16:36)
[2017-01-12] MEDS: ACCU-CHEK XX SCH ×4 (07:30→20:05)
[2017-01-12] MEDS: MULTIVIT/MIN/FOLATE/IRON/PREN TAB PO SCH (08:18)
[2017-01-12] MEDS: FERROUS SULFATE (EC) 325 MG TAB PO SCH (08:18)
[2017-01-12] MEDS: DOCUSATE SODIUM 100 MG CAP PO SCH (08:18)
[2017-01-12] MEDS: AL HYDROX/MG HYDROX/SIMETH 30 ML CUP PO PRN (08:18)
[2017-01-12] MEDS: POLYETHYLENE GLYCOL 17 GM PACKET PO SCH (08:19)
--- NOTE | 2017-01-12 15:50 | PN ---
Date/Time of Note Date/Time of Note DATE: 01/12/17 TIME: 15:47 OB Subjective Subjective Subjective had b.m only 1-2/hr u.c OB Objective Objective Objective EFM UC 2/HR here and there mg level 5.7 b.s ok OB Assessment/Plan Other Assessment: twin gestation 28w1d short cervix PTL GDM Other plan: CONTINUE CURRENT MANAGEMENT RICH TURNER MD Jan 12, 2017 15:50
[2017-01-13] MEDS: LACTATED RINGER'S 1,000 ML IV SCH ×2 (01:07→14:38)
[2017-01-13] MEDS: MAGNESIUM SULFATE 20 GM/500 ML 500 ML IV SCH ×3 (03:11→23:39)
[2017-01-13] MEDS: ACCU-CHEK XX SCH ×4 (08:25→19:52)
[2017-01-13] MEDS: DOCUSATE SODIUM 100 MG CAP PO SCH (09:08)
[2017-01-13] MEDS: MULTIVIT/MIN/FOLATE/IRON/PREN TAB PO SCH (09:08)
[2017-01-13] MEDS: POLYETHYLENE GLYCOL 17 GM PACKET PO SCH (09:08)
[2017-01-13] MEDS: FERROUS SULFATE (EC) 325 MG TAB PO SCH (09:08)
--- NOTE | 2017-01-13 19:23 | PN ---
Date/Time of Note Date/Time of Note DATE: 01/13/17 TIME: 19:20 OB Subjective Subjective Subjective few uterine contractions/day OB Objective Objective Objective EFM revealed few /day b.s nl OB Assessment/Plan Other Assessment: twin 28w2d short cervix PTL GDM Other plan: continue mg RICH TURNER MD January 13, 2017 19:23
[2017-01-14] MEDS: MAGNESIUM SULFATE 20 GM/500 ML 500 ML IV SCH ×3 (00:30→16:06)
[2017-01-14] MEDS ORDERED: BETAMET NA PHOS/AC(6 MG/ML) 5ML INJ IM ONE (01:00)
[2017-01-14 02:57] LABS: ADD SCAN DIFF NO
[2017-01-14 02:59] LABS: BASOPHILS % 0.4 % (0.0-2.0); EOSINOPHILS # 0.2 10^3/ul (0.0-0.5); EOSINOPHILS % 1.7 % (0.0-7.0); HEMATOCRIT 35.2 % (37.0-47.0); HEMOGLOBIN 11.7 g/dl (12.0-16.0); LYMPHOCYTES # 1.6 10^3/ul (0.8-2.9); LYMPHOCYTES % 16.4 % (15.0-51.0); MEAN CORPUSCULAR HEMOGLOBIN 30.3 pg (29.0-33.0); MEAN CORPUSCULAR HGB CONC 33.2 g/dl (32.0-37.0); MEAN CORPUSCULAR VOLUME 91.2 fl (82.0-101.0); MEAN PLATELET VOLUME 8.8 fl (7.4-10.4); MONOCYTE # 0.5 10^3/ul (0.3-0.9); MONOCYTES % 4.7 % (0.0-11.0); NEUTROPHIL # 7.3 10^3/ul (1.6-7.5); NEUTROPHILS % 76.1 % (39.0-77.0); PLATELET COUNT 252 10^3/UL (140-415); RED BLOOD COUNT 3.86 10^6/ul (4.20-5.40); RED CELL DISTRIBUTION WIDTH 13.2 % (11.5-14.5); WHITE BLOOD COUNT 9.6 10^3/ul (4.8-10.8)
[2017-01-14 03:09] LABS: ALBUMIN 3.2 g/dl (3.3-4.9); INR 0.96; PARTIAL THROMBOPLASTIN TIME 26.2 Sec (25.0-35.0); PROTIME 12.8 Sec (12.2-14.2)
[2017-01-14 03:12] LABS: ALBUMIN/GLOBULIN RATIO 0.88; BILIRUBIN,INDIRECT 0.2 mg/dl (0-1.1); BILIRUBIN,TOTAL 0.2 mg/dl (0.2-1.3); CREATININE 0.55 mg/dl (0.44-1.00); TOTAL PROTEIN 6.8 g/dl (6.1-8.1)
[2017-01-14 03:13] LABS: CALCIUM 7.2 mg/dl (8.4-10.2)
[2017-01-14] MEDS: LACTATED RINGER'S 1,000 ML IV SCH ×3 (04:03→22:38)
--- NOTE | 2017-01-14 04:17 | RADRPT ---
PROCEDURE: Obstetrical ultrasound, limited. CLINICAL INDICATION: Pelvic pain. TECHNIQUE: Multiple sonographic images of the pelvis were obtained using transabdominal technique . Images were obtained with gold scale and color Doppler. Transvaginal evaluation of the cervix was also performed. The images were reviewed on a PACS workstation. COMPARISON: 01/10/2017. FINDINGS: There is twin living intrauterine gestation. The cervix is shortened measuring 0.6 cm. Fetus A: Fetus A is in a breech position. heart tones of 137 beats per minute are identified . The placenta is posterior in location, grade 1. Measurements were made in order to determine age. The results are as follows: BPD =7.07 cm HC =25.79 cm AC =22.77 cm FL =5.05 cm. Estimated gestational age of approximately 27 weeks and 5 days. The estimated date of delivery is 04/10/2017. The EFW = 1054 +/- 158 grams. Fetus B: Fetus B is in a breech position. heart tones of 132 beats per minute are identified . The placenta is anterior in location, grade 1. Measurements were made in order to determine age. The results are as follows: BPD =6.89 cm HC =25.80 cm AC =23.35 cm FL =5.06 cm. Estimated gestational age of approximately 27 weeks and 5 days. The estimated date of delivery is 04/10/2017. The EFW = 1089 +/- 163 grams. IMPRESSION: Twin living intrauterine gestation. Fetus A has a gestational age of 27 weeks 5 days and fetus B h as a gestational age of 27 weeks 5 days. Shortened cervix measuring 0.6 cm. .Cole Blum MD, MD Date Time Electronically viewed and signed by .Cole Blum MD, MD on 01/14/2017 04:16 .T/
[2017-01-14] MEDS: ACCU-CHEK XX SCH ×4 (07:30→19:42)
[2017-01-14] MEDS: FERROUS SULFATE (EC) 325 MG TAB PO SCH (09:33)
[2017-01-14] MEDS: DOCUSATE SODIUM 100 MG CAP PO SCH (09:33)
[2017-01-14] MEDS: MULTIVIT/MIN/FOLATE/IRON/PREN TAB PO SCH (09:34)
[2017-01-14] MEDS: POLYETHYLENE GLYCOL 17 GM PACKET PO SCH (10:19)
--- NOTE | 2017-01-14 23:49 | PN ---
Date/Time of Note Date/Time of Note DATE: 01/14/17 TIME: 23:45 OB Subjective Subjective Subjective .still having uterine contractions with magnesium sulfate 2.5gm/hr with mg level 6.5 OB Objective Objective Objective EFM uc 2-4/hr BS ok OB Assessment/Plan Other Assessment: IUP 28w3 d twin gestation short cervix PTL GDM RICH TURNER MD January 14, 2017 23:49
[2017-01-15] MEDS: MAGNESIUM SULFATE 20 GM/500 ML 500 ML IV SCH ×3 (00:01→16:41)
[2017-01-15] MEDS ORDERED: BETAMET NA PHOS/AC(6 MG/ML) 5ML INJ IM ONE (01:00)
[2017-01-15] MEDS: ACCU-CHEK XX SCH ×4 (07:30→19:29)
--- NOTE | 2017-01-15 07:59 | PN ---
Date/Time of Note Date/Time of Note DATE: 01/15/17 TIME: 07:52 OB Subjective Subjective Subjective u.c 3-4/hr pt feels them last b.m 3days ago OB Objective Objective Objective EFM uc [id number] 01/14 EFW 1050, 1080 01/10 MVP 5.4cm/5.0cm this am FBS 139 which after 2nd dose of rescue BMZ OB Assessment/Plan Other Assessment: IUP 28w4d twin gestation cx 0.6cm PTL GDM Other plan: continue magnesium sulfate 2.5gm/hr RICH TURNER MD January 15, 2017 07:58
[2017-01-15] MEDS ORDERED: MAGNESIUM HYDROXIDE 30ML CUP PO PRN (08:00)
[2017-01-15] MEDS: MULTIVIT/MIN/FOLATE/IRON/PREN TAB PO SCH (08:20)
[2017-01-15] MEDS: FERROUS SULFATE (EC) 325 MG TAB PO SCH (08:20)
[2017-01-15] MEDS: DOCUSATE SODIUM 100 MG CAP PO SCH (08:20)
[2017-01-15] MEDS: POLYETHYLENE GLYCOL 17 GM PACKET PO SCH (10:45)
[2017-01-15] MEDS: AL HYDROX/MG HYDROX/SIMETH 30 ML CUP PO PRN (13:57)
[2017-01-15] MEDS: LACTATED RINGER'S 1,000 ML IV SCH (14:14)
[2017-01-16] MEDS: MAGNESIUM SULFATE 20 GM/500 ML 500 ML IV SCH ×3 (00:40→18:12)
[2017-01-16] MEDS: LACTATED RINGER'S 1,000 ML IV SCH ×2 (05:52→21:46)
[2017-01-16] MEDS: AL HYDROX/MG HYDROX/SIMETH 30 ML CUP PO PRN (07:29)
[2017-01-16] MEDS: ACCU-CHEK XX SCH ×3 (07:30→20:05)
[2017-01-16] MEDS: MULTIVIT/MIN/FOLATE/IRON/PREN TAB PO SCH (08:26)
[2017-01-16] MEDS: FERROUS SULFATE (EC) 325 MG TAB PO SCH (08:26)
[2017-01-16] MEDS: POLYETHYLENE GLYCOL 17 GM PACKET PO SCH (08:26)
[2017-01-16] MEDS: DOCUSATE SODIUM 100 MG CAP PO SCH (08:27)
--- NOTE | 2017-01-16 13:03 | RADRPT ---
PROCEDURE: US OB biophysical profile. CLINICAL INDICATION: decreased movements , PTL TECHNIQUE: Multiple sonographic images of the pelvis were obtained. The images were reviewed on a PACS workstation. COMPARISON: 01/14/17 FINDINGS: There is a twin viable intrauterine gestation. There is a normal amount of amniotic fluid with an GARCIA = cm. Twin A Cardiac activity is present with beats per minute. There is a breech presentation. The placenta is posterior. MVP = 6 cm Biophysical profile: movement 2/2 tone 2/2. breathing 2/2 GARCIA 2/2 Total 8/8 Twin B Cardiac activity is present with 142 beats per minute. There is a maternal right presentation. The placenta is anterior. MVP = 3 cm Biophysical profile: movement 2/2 tone 2/2. breathing 2/2 GARCIA 2/2 Total 8/8 RPTAT: AA . IMPRESSION: Normal biophysical profile for twin gestation . . .Pritesh Mims MD, MD Date Time Electronically viewed and signed by .Pritesh Mims MD, MD on 01/16/2017 13:03 .S/
--- NOTE | 2017-01-16 16:01 | PN ---
Date/Time of Note Date/Time of Note DATE: 01/16/17 TIME: 15:56 OB Subjective Subjective Subjective same not worse OB Objective Objective Objective EFM no significant u.c mg 6.6 bs is high more likely due to bmz OB Assessment/Plan Other Assessment: 28w5d twin etc Other plan: continue mg RICH TURNER MD January 16, 2017 16:01
[2017-01-16] MEDS ORDERED: INDOMETHACIN 50 MG PO ONE (22:52)
[2017-01-17] MEDS: MAGNESIUM SULFATE 20 GM/500 ML 500 ML IV SCH ×3 (02:45→17:16)
[2017-01-17] MEDS ORDERED: INDOMETHACIN 25 MG PO ONE (05:00)
[2017-01-17] MEDS: ACCU-CHEK XX SCH ×3 (07:27→14:07)
[2017-01-17] MEDS: POLYETHYLENE GLYCOL 17 GM PACKET PO SCH (09:00)
[2017-01-17] MEDS: MULTIVIT/MIN/FOLATE/IRON/PREN TAB PO SCH (09:04)
[2017-01-17] MEDS: DOCUSATE SODIUM 100 MG CAP PO SCH (09:04)
[2017-01-17] MEDS: FERROUS SULFATE (EC) 325 MG TAB PO SCH (09:04)
[2017-01-17] MEDS: LACTATED RINGER'S 1,000 ML IV SCH (09:31)
[2017-01-17] MEDS: INDOMETHACIN 25 MG PO SCH ×2 (12:15→18:13)
[2017-01-17 15:32] LABS: ADD UMIC YES; URINE BILIRUBIN (Dip) NEGATIVE (NEGATIVE); URINE BLOOD (Dip) 3+ (NEGATIVE); URINE GLUCOSE (Dip) NEGATIVE (NEGATIVE); URINE KETONES (Dip) NEGATIVE (NEGATIVE); URINE LEUKOCYTE ESTERASE (Dip) NEGATIVE (NEGATIVE); URINE NITRITE (Dip) NEGATIVE (NEGATIVE); URINE TOTAL PROTEIN (Dip) NEGATIVE (NEGATIVE); URINE UROBILINOGEN (Dip) 0.2 E.U./dL (0.1-1.0)
[2017-01-17 15:42] LABS: URINE COLOR PINK (YELLOW)
[2017-01-17 15:50] LABS: SQUAMOUS EPITHELIAL CELL,UR OCCASIONAL; URINE RBCS >50 /HPF (0)
[2017-01-18] MEDS: INDOMETHACIN 25 MG PO SCH ×4 (00:41→17:29)
[2017-01-18] MEDS: LACTATED RINGER'S 1,000 ML IV SCH (03:04)
[2017-01-18] MEDS: MAGNESIUM SULFATE 20 GM/500 ML 500 ML IV SCH ×3 (03:07→17:30)
[2017-01-18] MEDS: ACCU-CHEK XX SCH ×4 (07:36→19:50)
[2017-01-18] MEDS: MULTIVIT/MIN/FOLATE/IRON/PREN TAB PO SCH (08:36)
[2017-01-18] MEDS: FERROUS SULFATE (EC) 325 MG TAB PO SCH (08:37)
[2017-01-18] MEDS: DOCUSATE SODIUM 100 MG CAP PO SCH (08:37)
[2017-01-18] MEDS: POLYETHYLENE GLYCOL 17 GM PACKET PO SCH (09:00)
--- NOTE | 2017-01-18 11:04 | PN ---
Date/Time of Note Date/Time of Note DATE: 01/18/17 TIME: 10:58 this note is for yesterday not input after round OB Subjective Subjective Subjective no more uc after indocin given OB Objective Objective Objective EFM no uterine contractions mg level 6.3 HEENT: WNL Heart: Rhythm Normal Lungs: Clear, Equal Abdomen: WNL Extremities: Normal Reflexes: Normal OB Assessment/Plan Other Assessment: 28w6d twin on indocin GDM bs affected by betamethazone Other plan: continue same regimen RICH TURNER MD January 18, 2017 11:04
--- NOTE | 2017-01-18 11:07 | PN ---
Date/Time of Note Date/Time of Note DATE: 01/18/17 TIME: 11:04 OB Subjective Subjective Subjective no uterine contractions OB Objective Objective Objective EFM no uterine activities Mg level 6 BS almost back to normal OB Assessment/Plan Other Assessment: IUP 29weeks twin gestations short cervix PTL A1DM s/p X2 bmz on Mg 2nd day of indocin RICH TURNER MD January 18, 2017 11:07
[2017-01-18] MEDS: CLOTRIMAZOLE 1% 30 GM CR TOP SCH ×2 (14:27→21:30)
[2017-01-18 21:53] LABS: ADD SCAN DIFF NO
[2017-01-18 21:57] LABS: BASOPHILS % 0.3 % (0.0-2.0); EOSINOPHILS # 0.1 10^3/ul (0.0-0.5); EOSINOPHILS % 1.4 % (0.0-7.0); HEMOGLOBIN 10.6 g/dl (12.0-16.0); LYMPHOCYTES # 1.5 10^3/ul (0.8-2.9); LYMPHOCYTES % 14.5 % (15.0-51.0); MEAN CORPUSCULAR HGB CONC 34.2 g/dl (32.0-37.0); MEAN CORPUSCULAR VOLUME 90.6 fl (82.0-101.0); MEAN PLATELET VOLUME 9.1 fl (7.4-10.4); MONOCYTE # 0.6 10^3/ul (0.3-0.9); MONOCYTES % 5.8 % (0.0-11.0); NEUTROPHIL # 7.9 10^3/ul (1.6-7.5); NEUTROPHILS % 76.8 % (39.0-77.0); PLATELET COUNT 257 10^3/UL (140-415); RED BLOOD COUNT 3.42 10^6/ul (4.20-5.40); RED CELL DISTRIBUTION WIDTH 12.9 % (11.5-14.5); WHITE BLOOD COUNT 10.2 10^3/ul (4.8-10.8)
[2017-01-18 22:18] LABS: ALBUMIN 2.7 g/dl (3.3-4.9); POTASSIUM 3.3 mmol/L (3.5-5.1)
[2017-01-18 22:20] LABS: BILIRUBIN,INDIRECT 0.2 mg/dl (0-1.1); BILIRUBIN,TOTAL 0.2 mg/dl (0.2-1.3); CREATININE 0.69 mg/dl (0.44-1.00)
[2017-01-18 22:21] LABS: ALBUMIN/GLOBULIN RATIO 0.96; CALCIUM 7.4 mg/dl (8.4-10.2); TOTAL PROTEIN 5.5 g/dl (6.1-8.1)
[2017-01-19] MEDS: MAGNESIUM SULFATE 20 GM/500 ML 500 ML IV SCH ×5 (00:30→20:05)
[2017-01-19] MEDS: LACTATED RINGER'S 1,000 ML IV SCH ×4 (01:40→20:07)
[2017-01-19] MEDS: ACCU-CHEK XX SCH ×4 (08:00→20:05)
--- NOTE | 2017-01-19 09:29 | PN ---
Date/Time of Note Date/Time of Note DATE: 01/19/17 TIME: 09:25 OB Subjective Subjective Subjective having some u.c OB Objective Objective Objective EFM irreg uc BS 2hr pp 154 u OB Assessment/Plan Other Assessment: IUP 29W1D TWIN GESTATION SHORT CERVIX PTL GDM Other plan: PERINATlogy consult RICH TURNER MD January 19, 2017 09:29
[2017-01-19] MEDS: POLYETHYLENE GLYCOL 17 GM PACKET PO SCH (10:29)
[2017-01-19] MEDS: MULTIVIT/MIN/FOLATE/IRON/PREN TAB PO SCH (10:30)
[2017-01-19] MEDS: FERROUS SULFATE (EC) 325 MG TAB PO SCH (10:30)
[2017-01-19] MEDS: CLOTRIMAZOLE 1% 30 GM CR TOP SCH ×2 (10:30→21:29)
[2017-01-19] MEDS: DOCUSATE SODIUM 100 MG CAP PO SCH (10:30)
[2017-01-19 21:19] LABS: ADD SCAN DIFF NO
[2017-01-19 21:21] LABS: BASOPHILS % 0.3 % (0.0-2.0); EOSINOPHILS # 0.1 10^3/ul (0.0-0.5); EOSINOPHILS % 1.4 % (0.0-7.0); HEMATOCRIT 31.9 % (37.0-47.0); HEMOGLOBIN 10.9 g/dl (12.0-16.0); LYMPHOCYTES # 1.6 10^3/ul (0.8-2.9); LYMPHOCYTES % 15.3 % (15.0-51.0); MEAN CORPUSCULAR HEMOGLOBIN 30.8 pg (29.0-33.0); MEAN CORPUSCULAR HGB CONC 34.2 g/dl (32.0-37.0); MEAN CORPUSCULAR VOLUME 90.1 fl (82.0-101.0); MEAN PLATELET VOLUME 8.9 fl (7.4-10.4); MONOCYTE # 0.7 10^3/ul (0.3-0.9); MONOCYTES % 6.3 % (0.0-11.0); NEUTROPHIL # 7.8 10^3/ul (1.6-7.5); NEUTROPHILS % 75.9 % (39.0-77.0); PLATELET COUNT 246 10^3/UL (140-415); RED BLOOD COUNT 3.54 10^6/ul (4.20-5.40); RED CELL DISTRIBUTION WIDTH 13.1 % (11.5-14.5); WHITE BLOOD COUNT 10.3 10^3/ul (4.8-10.8)
[2017-01-19 21:34] LABS: INR 0.98
[2017-01-19 21:35] LABS: PARTIAL THROMBOPLASTIN TIME 25.1 Sec (25.0-35.0)
[2017-01-20] MEDS: MAGNESIUM SULFATE 20 GM/500 ML 500 ML IV SCH ×3 (01:46→19:41)
[2017-01-20] MEDS: ACCU-CHEK XX SCH ×4 (07:30→21:01)
[2017-01-20] MEDS: MULTIVIT/MIN/FOLATE/IRON/PREN TAB PO SCH (08:46)
[2017-01-20] MEDS: DOCUSATE SODIUM 100 MG CAP PO SCH (08:46)
[2017-01-20] MEDS: AL HYDROX/MG HYDROX/SIMETH 30 ML CUP PO PRN (08:47)
[2017-01-20] MEDS: FERROUS SULFATE (EC) 325 MG TAB PO SCH (09:00)
[2017-01-20] MEDS: POLYETHYLENE GLYCOL 17 GM PACKET PO SCH (09:00)
--- NOTE | 2017-01-20 09:54 | PN ---
Date/Time of Note Date/Time of Note DATE: 01/20/17 TIME: 09:50 OB Subjective Subjective Subjective last night had more uterine contractions subsided after increase mg l 3gm/hr OB Objective Objective Objective cx open to 1 contracions gone OB Assessment/Plan Other Assessment: iup twin 29w3d ptl Other plan: mg down to 2.5gm RICH TURNER MD January 20, 2017 09:54
[2017-01-20] MEDS: CLOTRIMAZOLE 1% 30 GM CR TOP SCH ×2 (10:26→21:01)
[2017-01-20] MEDS: LACTATED RINGER'S 1,000 ML IV SCH (13:14)
--- NOTE | 2017-01-20 18:39 | CONS ---
DATE OF ADMISSION: 12/20/2016 DATE OF CONSULTATION: 01/20/2017 HISTORY OF PRESENT ILLNESS: The patient is with twin intrauterine and has been admitted s econdary to short cervix for about more than a month. She received 2 sets of betamethasone and curr ently she is on magnesium sulfate. She was on magnesium sulfate 3 grams an hour and was decreased t o 2.5 grams an hour. Her magnesium level apparently at 9:00 a.m. was 6.6, which is lower than 6.9 a t midnight. At that time, the dose was decreased. She is georgina about 3 an hour. She does fe el the contractions; however, her cervix is about a 1 cm dilated and posterior. On 01/14/2017, her cervical length was 6 mm; however, digital exam apparently as of yesterday is 1 cm dilation. RECOMMENDATIONS: Please obtain a mag level. If the mag level is less than 2.6, then she can be con tinued for 2.5 grams an hour; however, it has remained at 6.6, then I do recommend lowering the dose to 2 grams an hour and then do not increase it. Do not increase the dose of magnesium to 3 grams an hour. Please make sure that the magnesium sulfate does not exceed 4 days, as after that it is category 3. If she goes in labor despite magnesium sulfate, then delivery should be performed. Please note that if she delivers before 32 weeks, then magnesium sulfate for neuro prophylaxis is recommended. If t he patient has been off of magnesium for 12 hours, when she is in labor, then magnesium sulfate 4 gr am an hour, followed by 2 grams an hour should be initiated for at least 6 hours. However, please d o not delay delivery in case of emergencies just to give the patient magnesium sulfate. If the dave ent has been off of magnesium for less than 12 hours, then she can be continued on 2 g an hour of ma gnesium for 6 hours. Again, do not delay delivery just for the magnesium. Also, please make sure N ICU is consulted and a recent estimated ____, meaning within the last 3 weeks, is available. Dictated By: KARLO MUÑOZ MD ST/NTS Conf#: [id number] DID#: [id number] CC: CHRIS TURNER MD;*EndCC*
[2017-01-21] MEDS: LACTATED RINGER'S 1,000 ML IV SCH ×2 (02:40→17:23)
[2017-01-21] MEDS: MAGNESIUM SULFATE 20 GM/500 ML 500 ML IV SCH ×2 (05:45→17:22)
[2017-01-21] MEDS: ACCU-CHEK XX SCH ×3 (08:30→20:48)
[2017-01-21] MEDS: DOCUSATE SODIUM 100 MG CAP PO SCH (10:41)
[2017-01-21] MEDS: FERROUS SULFATE (EC) 325 MG TAB PO SCH (10:41)
[2017-01-21] MEDS: MULTIVIT/MIN/FOLATE/IRON/PREN TAB PO SCH (10:41)
[2017-01-21] MEDS: POLYETHYLENE GLYCOL 17 GM PACKET PO SCH (10:41)
[2017-01-21] MEDS: CLOTRIMAZOLE 1% 30 GM CR TOP SCH ×2 (16:02→20:48)
--- NOTE | 2017-01-21 23:06 | PN ---
Date/Time of Note Date/Time of Note DATE: 01/21/17 TIME: 23:03 OB Subjective Subjective Subjective mild uterine contractions with 2gm mg /hr after 4hr resting period OB Objective Objective Objective EFM 5/hr mg level 5.7 OB Assessment/Plan Other Assessment: [id number] twin gestation br/br ptl gdm Other plan: continue mg RICH TURNER MD January 21, 2017 23:06
[2017-01-22] MEDS: MAGNESIUM SULFATE 20 GM/500 ML 500 ML IV SCH ×3 (02:44→22:45)
[2017-01-22] MEDS: LACTATED RINGER'S 1,000 ML IV SCH ×2 (02:45→17:12)
[2017-01-22] MEDS: ACCU-CHEK XX SCH ×4 (08:16→19:49)
[2017-01-22] MEDS: CLOTRIMAZOLE 1% 30 GM CR TOP SCH ×2 (08:32→21:36)
[2017-01-22] MEDS: POLYETHYLENE GLYCOL 17 GM PACKET PO SCH (08:32)
[2017-01-22] MEDS: MULTIVIT/MIN/FOLATE/IRON/PREN TAB PO SCH (08:32)
[2017-01-22] MEDS: FERROUS SULFATE (EC) 325 MG TAB PO SCH (08:32)
[2017-01-22] MEDS: DOCUSATE SODIUM 100 MG CAP PO SCH (08:32)
--- NOTE | 2017-01-22 13:49 | PN ---
Date/Time of Note Date/Time of Note DATE: 01/22/17 TIME: 13:44 OB Subjective Subjective Subjective still uterine a ctivities here and there not so much sxmatic OB Objective Objective Objective EFM irreg uterine contractios mg level 5.6 OB Assessment/Plan Reason for admission: labor Other Assessment: twin 29w4d PTL GDM Other plan: continue magnesium sulfate 2gm/hr RICH TURNER MD January 22, 2017 13:49
[2017-01-22] MEDS: ACETAMINOPHEN 325 MG TAB PO PRN (17:15)
[2017-01-23] MEDS: LACTATED RINGER'S 1,000 ML IV SCH ×2 (06:13→19:30)
[2017-01-23] MEDS: ACCU-CHEK XX SCH ×5 (08:13→20:05)
[2017-01-23] MEDS: MAGNESIUM SULFATE 20 GM/500 ML 500 ML IV SCH ×2 (08:43→19:29)
[2017-01-23] MEDS: POLYETHYLENE GLYCOL 17 GM PACKET PO SCH (09:01)
[2017-01-23] MEDS: FERROUS SULFATE (EC) 325 MG TAB PO SCH (09:01)
[2017-01-23] MEDS: DOCUSATE SODIUM 100 MG CAP PO SCH (09:01)
[2017-01-23] MEDS: MULTIVIT/MIN/FOLATE/IRON/PREN TAB PO SCH (09:01)
[2017-01-23] MEDS: CLOTRIMAZOLE 1% 30 GM CR TOP SCH ×2 (09:02→21:00)
--- NOTE | 2017-01-23 20:52 | PN ---
Date/Time of Note Date/Time of Note DATE: 01/23/17 TIME: 20:48 OB Subjective Subjective Subjective lujan cath is bordering so much OB Objective Objective Objective EFM uterine activities more often today but they are aymptomatic mg level 1800 today 6.2 OB Assessment/Plan Reason for admission: labor Other Assessment: [id number] twin gestation Other plan: continue mg break for RICH Acosta MD January 23, 2017 20:52
[2017-01-24] MEDS: MAGNESIUM SULFATE 20 GM/500 ML 500 ML IV SCH ×2 (05:09→14:53)
[2017-01-24] MEDS: LACTATED RINGER'S 1,000 ML IV SCH ×2 (06:26→14:52)
[2017-01-24 06:55] LABS: ADD UMIC YES; URINE BILIRUBIN (Dip) NEGATIVE (NEGATIVE); URINE BLOOD (Dip) 3+ (NEGATIVE); URINE COLOR LT. YELLOW (YELLOW); URINE GLUCOSE (Dip) NEGATIVE (NEGATIVE); URINE KETONES (Dip) NEGATIVE (NEGATIVE); URINE LEUKOCYTE ESTERASE (Dip) TRACE (NEGATIVE); URINE NITRITE (Dip) NEGATIVE (NEGATIVE); URINE TOTAL PROTEIN (Dip) NEGATIVE (NEGATIVE); URINE UROBILINOGEN (Dip) 0.2 E.U./dL (0.1-1.0)
[2017-01-24 07:39] LABS: URINE RBCS >200 /HPF (0)
[2017-01-24] MEDS: ACCU-CHEK XX SCH ×4 (07:59→20:15)
[2017-01-24] MEDS: POLYETHYLENE GLYCOL 17 GM PACKET PO SCH (08:53)
[2017-01-24] MEDS: FERROUS SULFATE (EC) 325 MG TAB PO SCH (08:53)
[2017-01-24] MEDS: MULTIVIT/MIN/FOLATE/IRON/PREN TAB PO SCH (08:53)
[2017-01-24] MEDS: CLOTRIMAZOLE 1% 30 GM CR TOP SCH ×2 (08:53→21:30)
[2017-01-24] MEDS: DOCUSATE SODIUM 100 MG CAP PO SCH (08:54)
--- NOTE | 2017-01-24 10:25 | PN ---
Date/Time of Note Date/Time of Note DATE: 01/24/17 TIME: 10:22 OB Subjective Subjective Subjective had some uterine activities but asymptomatic OB Objective Objective Objective EFM 6-7/hr mild mg level 4.8 OB Assessment/Plan Other Assessment: IUP 29w6d twin gestation PTL Other plan: same regimen RICH TURNER MD January 24, 2017 10:25
[2017-01-25] MEDS: MAGNESIUM SULFATE 20 GM/500 ML 500 ML IV SCH ×3 (00:39→21:32)
[2017-01-25] MEDS: LACTATED RINGER'S 1,000 ML IV SCH ×2 (06:27→20:48)
[2017-01-25] MEDS: ACCU-CHEK XX SCH ×4 (08:41→20:05)
[2017-01-25] MEDS: DOCUSATE SODIUM 100 MG CAP PO SCH (09:15)
[2017-01-25] MEDS: MULTIVIT/MIN/FOLATE/IRON/PREN TAB PO SCH (09:16)
[2017-01-25] MEDS: FERROUS SULFATE (EC) 325 MG TAB PO SCH (09:16)
[2017-01-25] MEDS: POLYETHYLENE GLYCOL 17 GM PACKET PO SCH (09:16)
[2017-01-25] MEDS: CLOTRIMAZOLE 1% 30 GM CR TOP SCH ×2 (09:17→21:00)
--- NOTE | 2017-01-25 13:17 | RADRPT ---
PROCEDURE: OB ultrasound, twin gestations CLINICAL INDICATION: . OB ultrasound with assessment of position and cardiac activ ity TECHNIQUE: Sonographic evaluation to assess the amniotic fluid volume was performed. Transabdomin al imaging of the gravid uterus was performed. COMPARISON: 01/16/2017 FINDINGS: TWIN A heart rate: 135 Beats per minute. Presentation: Breech Placenta posterior TWIN B There are no saved images of twin B cardiac activity but there is a measurement record of 127 beats per minute.. Presentation: Transverse maternal left Placenta anterior IMPRESSION: TWIN A heart rate: 135 Beats per minute. Presentation: Breech TWIN B There are no saved images of twin B cardiac activity but there is a measurement record of 127 beats per minute.. Presentation: Transverse maternal left Correlation with heart rate monitoring is suggested for confirmation of twin B heart rate. Re peat examination can be performed. Results were discussed with Nurse Leon by telephone at 1315 hours on 01/25/[address] Devon ibanez RPTAT: AADD .Devon Humphrey MD, Date Time Electronically viewed and signed by .Devon Humphrey MD, on 01/25/2017 13:17 .B/
--- NOTE | 2017-01-25 13:25 | PN ---
Date/Time of Note Date/Time of Note DATE: 01/25/17 TIME: 13:22 OB Subjective Subjective Subjective smae as before OB Objective Objective Objective eFM no sig uterine contractions OB Assessment/Plan Other Assessment: IUP 30WEEKS TWIN GESTATION pTL Other plan: SAME RICH TURNER MD January 25, 2017 13:25
[2017-01-26] MEDS: MAGNESIUM SULFATE 20 GM/500 ML 500 ML IV SCH ×2 (06:35→16:45)
[2017-01-26] MEDS: ACCU-CHEK XX SCH ×4 (07:30→20:58)
[2017-01-26] MEDS: FERROUS SULFATE (EC) 325 MG TAB PO SCH (08:53)
[2017-01-26] MEDS: DOCUSATE SODIUM 100 MG CAP PO SCH (08:53)
[2017-01-26] MEDS: MULTIVIT/MIN/FOLATE/IRON/PREN TAB PO SCH (08:53)
[2017-01-26] MEDS: POLYETHYLENE GLYCOL 17 GM PACKET PO SCH (08:53)
[2017-01-26] MEDS: CLOTRIMAZOLE 1% 30 GM CR TOP SCH ×2 (09:00→22:08)
[2017-01-26] MEDS: LACTATED RINGER'S 1,000 ML IV SCH ×2 (10:40→23:40)
[2017-01-27] MEDS: MAGNESIUM SULFATE 20 GM/500 ML 500 ML IV SCH ×3 (03:07→21:30)
[2017-01-27] MEDS: ACCU-CHEK XX SCH ×4 (08:09→20:36)
[2017-01-27] MEDS: POLYETHYLENE GLYCOL 17 GM PACKET PO SCH (09:21)
[2017-01-27] MEDS: FERROUS SULFATE (EC) 325 MG TAB PO SCH (09:21)
[2017-01-27] MEDS: MULTIVIT/MIN/FOLATE/IRON/PREN TAB PO SCH (09:21)
[2017-01-27] MEDS: DOCUSATE SODIUM 100 MG CAP PO SCH (09:21)
--- NOTE | 2017-01-27 14:14 | PN ---
Date/Time of Note Date/Time of Note DATE: 01/27/17 TIME: 14:12 OB Subjective Subjective Subjective sleeping no uterine activities OB Objective Objective Objective EFM no u.c mg 5.4 OB Assessment/Plan Other Assessment: UUP 30w2d twin ptl Other plan: break from Mg sulfate for 4-6 hr even more if patient ok without it RICH TURNER MD January 27, 2017 14:14
[2017-01-27] MEDS: CLOTRIMAZOLE 1% 30 GM CR TOP SCH ×2 (16:56→21:00)
[2017-01-27] MEDS: LACTATED RINGER'S 1,000 ML IV SCH ×3 (17:30→21:37)
[2017-01-28] MEDS: MAGNESIUM SULFATE 20 GM/500 ML 500 ML IV SCH ×2 (04:56→17:13)
[2017-01-28] MEDS: ACCU-CHEK XX SCH ×4 (08:00→21:37)
[2017-01-28] MEDS: POLYETHYLENE GLYCOL 17 GM PACKET PO SCH (11:14)
[2017-01-28] MEDS: MULTIVIT/MIN/FOLATE/IRON/PREN TAB PO SCH (11:14)
[2017-01-28] MEDS: FERROUS SULFATE (EC) 325 MG TAB PO SCH (11:14)
[2017-01-28] MEDS: DOCUSATE SODIUM 100 MG CAP PO SCH (11:14)
[2017-01-28] MEDS: LACTATED RINGER'S 1,000 ML IV SCH ×2 (11:15→16:22)
[2017-01-28] MEDS: CLOTRIMAZOLE 1% 30 GM CR TOP SCH ×2 (11:20→21:00)
--- NOTE | 2017-01-28 13:10 | PN ---
Date/Time of Note Date/Time of Note DATE: 01/28/17 TIME: 13:07 OB Subjective Subjective Subjective not feeling the uc which shows on EFM OB Objective Objective Objective occ uc onefm yesterdays 6hr break from mag sulfate OB Assessment/Plan Other Assessment: IUP 30w3d twin PTL Other plan: continue current management RICH TURNER MD January 28, 2017 13:10
[2017-01-29] MEDS: MAGNESIUM SULFATE 20 GM/500 ML 500 ML IV SCH ×3 (02:00→22:50)
[2017-01-29] MEDS: LACTATED RINGER'S 1,000 ML IV SCH ×2 (04:08→17:33)
[2017-01-29] MEDS: MULTIVIT/MIN/FOLATE/IRON/PREN TAB PO SCH (10:02)
[2017-01-29] MEDS: POLYETHYLENE GLYCOL 17 GM PACKET PO SCH (10:02)
[2017-01-29] MEDS: CLOTRIMAZOLE 1% 30 GM CR TOP SCH ×2 (10:02→21:00)
[2017-01-29] MEDS: DOCUSATE SODIUM 100 MG CAP PO SCH (10:03)
[2017-01-29] MEDS: FERROUS SULFATE (EC) 325 MG TAB PO SCH (10:03)
[2017-01-29] MEDS: ACCU-CHEK XX SCH ×3 (11:20→20:58)
--- NOTE | 2017-01-29 22:40 | PN ---
Date/Time of Note Date/Time of Note DATE: 01/29/17 TIME: 22:37 OB Subjective Subjective Subjective NO SIGNIFICANT UTERINE ACTIVITIES OB Objective Objective Objective EFM NO UC BS WNL MG LEVEL 5.7 OB Assessment/Plan Other Assessment: IUP 30W4D TWIN BR/BR ON LAST U/S A1DM PTL Other plan: CONTINUE CURRENT MANAGEMENT RICH TURNER MD January 29, 2017 22:40
[2017-01-30] MEDS: LACTATED RINGER'S 1,000 ML IV SCH ×2 (07:37→20:15)
[2017-01-30] MEDS: ACCU-CHEK XX SCH ×4 (08:59→20:55)
[2017-01-30] MEDS: DOCUSATE SODIUM 100 MG CAP PO SCH (09:50)
[2017-01-30] MEDS: MULTIVIT/MIN/FOLATE/IRON/PREN TAB PO SCH (09:50)
[2017-01-30] MEDS: POLYETHYLENE GLYCOL 17 GM PACKET PO SCH (09:50)
[2017-01-30] MEDS: FERROUS SULFATE (EC) 325 MG TAB PO SCH (09:50)
[2017-01-30] MEDS: MAGNESIUM SULFATE 20 GM/500 ML 500 ML IV SCH ×2 (10:00→20:11)
[2017-01-30] MEDS: CLOTRIMAZOLE 1% 30 GM CR TOP SCH ×2 (11:00→21:00)
[2017-01-30] MEDS: ACETAMINOPHEN 325 MG TAB PO PRN ×2 (15:18→15:19)
--- NOTE | 2017-01-30 21:43 | PN ---
Date/Time of Note Date/Time of Note DATE: 01/30/17 TIME: 21:40 OB Subjective Subjective Subjective same as other day no significant uterine activities OB Objective Objective Objective EFM NO UC P.PBS TONITE 158 OB Assessment/Plan Other Assessment: iup 30W4D TWIN PTL A1DM Other plan: CONT RICH TURNER MD January 30, 2017 21:43
[2017-01-31] MEDS: LACTATED RINGER'S 1,000 ML IV SCH ×2 (06:06→18:28)
[2017-01-31] MEDS: MAGNESIUM SULFATE 20 GM/500 ML 500 ML IV SCH ×2 (06:14→16:20)
[2017-01-31] MEDS: ACCU-CHEK XX SCH ×4 (08:21→20:09)
[2017-01-31] MEDS: FERROUS SULFATE (EC) 325 MG TAB PO SCH (08:47)
[2017-01-31] MEDS: DOCUSATE SODIUM 100 MG CAP PO SCH (08:47)
[2017-01-31] MEDS: POLYETHYLENE GLYCOL 17 GM PACKET PO SCH (08:47)
[2017-01-31] MEDS: MULTIVIT/MIN/FOLATE/IRON/PREN TAB PO SCH (08:47)
[2017-01-31] MEDS: CLOTRIMAZOLE 1% 30 GM CR TOP SCH ×2 (15:00→21:00)
--- NOTE | 2017-01-31 15:01 | PN ---
Date/Time of Note Date/Time of Note DATE: 01/31/17 TIME: 14:57 OB Subjective Subjective Subjective uc 2-3/hr lasting little longer some felt by pa OB Objective Objective Objective EFM u.c/shown 2-3/hr last mg level 5.9 b.s today ok except last night which was 158 after hamburger OB Assessment/Plan Other Assessment: IUP 30w5d twin gestation PTL gdm Other plan: check mg level closer in 8hrs RICH TURNER MD January 31, 2017 15:01
[2017-02-01] MEDS: MAGNESIUM SULFATE 20 GM/500 ML 500 ML IV SCH ×3 (02:24→22:02)
[2017-02-01] MEDS: LACTATED RINGER'S 1,000 ML IV SCH ×2 (07:55→20:31)
[2017-02-01] MEDS: ACCU-CHEK XX SCH ×4 (08:30→20:05)
[2017-02-01] MEDS: DOCUSATE SODIUM 100 MG CAP PO SCH (09:24)
[2017-02-01] MEDS: FERROUS SULFATE (EC) 325 MG TAB PO SCH (09:24)
[2017-02-01] MEDS: POLYETHYLENE GLYCOL 17 GM PACKET PO SCH (09:25)
[2017-02-01] MEDS: MULTIVIT/MIN/FOLATE/IRON/PREN TAB PO SCH (09:25)
--- NOTE | 2017-02-01 10:53 | PN ---
Date/Time of Note Date/Time of Note DATE: 02/01/17 TIME: 10:50 OB Subjective Subjective Subjective still hanging same as before OB Objective Objective Objective EFM occ u.c mg 6.3 b.s nl HEENT: WNL Heart: Rhythm Normal Lungs: Clear, Equal Abdomen: WNL Extremities: Normal Reflexes: Normal OB Assessment/Plan Other Assessment: IUP31w twin gestation PTL A1DM Other plan: continue today will take break tomorrow RICH TURNER MD February 01, 2017 10:53
[2017-02-02] MEDS: MAGNESIUM SULFATE 20 GM/500 ML 500 ML IV SCH ×2 (07:54→23:15)
[2017-02-02] MEDS: ACCU-CHEK XX SCH ×4 (08:20→20:43)
[2017-02-02] MEDS: POLYETHYLENE GLYCOL 17 GM PACKET PO SCH (08:33)
[2017-02-02] MEDS: MULTIVIT/MIN/FOLATE/IRON/PREN TAB PO SCH (08:33)
[2017-02-02] MEDS: DOCUSATE SODIUM 100 MG CAP PO SCH (08:33)
[2017-02-02] MEDS: FERROUS SULFATE (EC) 325 MG TAB PO SCH (08:33)
[2017-02-02] MEDS: LACTATED RINGER'S 1,000 ML IV SCH ×2 (10:53→23:25)
--- NOTE | 2017-02-02 23:57 | PN ---
Date/Time of Note Date/Time of Note DATE: 02/02/17 TIME: 23:54 OB Subjective Subjective Subjective patient is sound sleep had irregular uc had almost 6hrs break from getting magnesium sulfate OB Objective Objective Objective EFM 6-8/hr u.c magnesium lvel last one 6.3 OB Assessment/Plan Other Assessment: IUP 31w1d twin gestation A1DM PTL Other plan: continue current regimen RICH TURNER MD February 02, 2017 23:57
[2017-02-03] MEDS: MAGNESIUM SULFATE 20 GM/500 ML 500 ML IV SCH ×3 (03:30→21:15)
[2017-02-03] MEDS: ACCU-CHEK XX SCH ×4 (07:30→20:22)
[2017-02-03] MEDS: POLYETHYLENE GLYCOL 17 GM PACKET PO SCH (08:22)
[2017-02-03] MEDS: FERROUS SULFATE (EC) 325 MG TAB PO SCH (08:23)
[2017-02-03] MEDS: MULTIVIT/MIN/FOLATE/IRON/PREN TAB PO SCH (08:24)
[2017-02-03] MEDS: DOCUSATE SODIUM 100 MG CAP PO SCH (08:24)
[2017-02-03] MEDS: LACTATED RINGER'S 1,000 ML IV SCH (12:44)
--- NOTE | 2017-02-03 13:54 | PN ---
Date/Time of Note Date/Time of Note DATE: 02/03/17 TIME: 13:52 OB Subjective Subjective Subjective still having same feeling not worse OB Objective Objective Objective EFM u.c 6/hr mg 5.9 OB Assessment/Plan Other Assessment: 31w3d twin PTL ADM Other plan: continue IRCH TURNER MD February 03, 2017 13:54
[2017-02-04] MEDS: LACTATED RINGER'S 1,000 ML IV SCH ×2 (01:54→16:04)
[2017-02-04] MEDS: MAGNESIUM SULFATE 20 GM/500 ML 500 ML IV SCH ×2 (07:17→16:07)
[2017-02-04] MEDS: ACCU-CHEK XX SCH ×4 (09:20→19:36)
[2017-02-04] MEDS: POLYETHYLENE GLYCOL 17 GM PACKET PO SCH (09:46)
[2017-02-04] MEDS: FERROUS SULFATE (EC) 325 MG TAB PO SCH (09:46)
[2017-02-04] MEDS: DOCUSATE SODIUM 100 MG CAP PO SCH (09:46)
[2017-02-04] MEDS: MULTIVIT/MIN/FOLATE/IRON/PREN TAB PO SCH (09:46)
[2017-02-04 13:10] LABS: ADD SCAN DIFF NO
[2017-02-04 13:11] LABS: BASOPHILS % 0.5 % (0.0-2.0); EOSINOPHILS # 0.1 10^3/ul (0.0-0.5); EOSINOPHILS % 1.1 % (0.0-7.0); HEMATOCRIT 32.3 % (37.0-47.0); HEMOGLOBIN 10.5 g/dl (12.0-16.0); LYMPHOCYTES # 1.4 10^3/ul (0.8-2.9); LYMPHOCYTES % 17.9 % (15.0-51.0); MEAN CORPUSCULAR HEMOGLOBIN 30.6 pg (29.0-33.0); MEAN CORPUSCULAR HGB CONC 32.5 g/dl (32.0-37.0); MEAN CORPUSCULAR VOLUME 94.2 fl (82.0-101.0); MEAN PLATELET VOLUME 9.2 fl (7.4-10.4); MONOCYTE # 0.5 10^3/ul (0.3-0.9); NEUTROPHIL # 5.9 10^3/ul (1.6-7.5); PLATELET COUNT 231 10^3/UL (140-415); RED BLOOD COUNT 3.43 10^6/ul (4.20-5.40); RED CELL DISTRIBUTION WIDTH 13.4 % (11.5-14.5)
[2017-02-04 13:28] LABS: ADD UMIC YES; URINE BILIRUBIN (Dip) NEGATIVE (NEGATIVE); URINE BLOOD (Dip) TRACE (NEGATIVE); URINE COLOR LT. YELLOW (YELLOW); URINE GLUCOSE (Dip) NEGATIVE (NEGATIVE); URINE KETONES (Dip) NEGATIVE (NEGATIVE); URINE LEUKOCYTE ESTERASE (Dip) 3+ (NEGATIVE); URINE NITRITE (Dip) NEGATIVE (NEGATIVE); URINE TOTAL PROTEIN (Dip) NEGATIVE (NEGATIVE); URINE UROBILINOGEN (Dip) 0.2 E.U./dL (0.1-1.0)
[2017-02-04 13:29] LABS: ALBUMIN 3.3 g/dl (3.3-4.9); ALBUMIN/GLOBULIN RATIO 0.91; BILIRUBIN,INDIRECT 0.1 mg/dl (0-1.1); BILIRUBIN,TOTAL 0.1 mg/dl (0.2-1.3); CALCIUM 7.5 mg/dl (8.4-10.2); CREATININE 0.72 mg/dl (0.44-1.00); POTASSIUM 4.3 mmol/L (3.5-5.1); TOTAL PROTEIN 6.9 g/dl (6.1-8.1)
[2017-02-04 13:39] LABS: BACTERIA,URINE OCCASIONAL; URINE RBCS 0-2 /HPF (0)
--- NOTE | 2017-02-04 14:45 | RADRPT ---
PROCEDURE: US OB biophysical profile. CLINICAL INDICATION: decreased movements TECHNIQUE: Multiple sonographic images of the pelvis were obtained. The images were reviewed on a PACS workstation. COMPARISON: Obstetrical ultrasound from 01/25/2017 FINDINGS: There is a twin viable intrauterine gestation. There is a normal amount of amniotic fluid. Twin A Cardiac activity is present with 143 beats per minute. There is a breech presentation. The placenta is posterior. MVP = 4.0 cm Biophysical profile: movement 2/2 tone 2/2. breathing 2/2 GARCIA 2/2 Total 8/8 Twin B Cardiac activity is present with 161 beats per minute. There is a breech presentation. The placenta is anterior. MVP = 4.6 cm Biophysical profile: movement 2/2 tone 2/2. breathing 2/2 GARCIA 2/2 Total 8/8 RPTAT: AA . IMPRESSION: Normal biophysical profile for twin gestation . Both fetuses demonstrate breech presentation. Physician Dee Date Time Electronically viewed and signed by Physician Dee on 02/04/2017 14:45 /
--- NOTE | 2017-02-04 17:34 | PN ---
Date/Time of Note Date/Time of Note DATE: 02/04/17 TIME: 17:30 OB Subjective Subjective Subjective same feeling not different than any other day OB Objective Objective Objective CMP cr .72, Na and Ca low BS nl apt ok OB Assessment/Plan Other Assessment: IUP 31w3d twin gestation PTL A1DM Other plan: same management RICH TURNER MD February 04, 2017 17:34
[2017-02-05] MEDS: MAGNESIUM SULFATE 20 GM/500 ML 500 ML IV SCH ×3 (02:18→21:37)
[2017-02-05] MEDS: LACTATED RINGER'S 1,000 ML IV SCH ×2 (04:57→19:15)
[2017-02-05] MEDS: ACCU-CHEK XX SCH ×4 (08:20→20:05)
[2017-02-05] MEDS: DOCUSATE SODIUM 100 MG CAP PO SCH (08:57)
[2017-02-05] MEDS: POLYETHYLENE GLYCOL 17 GM PACKET PO SCH (08:57)
[2017-02-05] MEDS: FERROUS SULFATE (EC) 325 MG TAB PO SCH (08:57)
[2017-02-05] MEDS: MULTIVIT/MIN/FOLATE/IRON/PREN TAB PO SCH (08:57)
--- NOTE | 2017-02-05 21:38 | PN ---
Date/Time of Note Date/Time of Note DATE: 02/05/17 TIME: 21:35 OB Subjective Subjective Subjective same as other day no significant symptom OB Objective Objective Objective EFM 6-8/hr mg level 5.5 B.S nl OB Assessment/Plan Reason for admission: labor Other Assessment: IUP 31w5d with twin gestation Other plan: same regimen RICH TURNER MD February 05, 2017 21:38
[2017-02-06] MEDS ORDERED: OXYTOCIN 30 UNITS/LR 500 ML BAG IV ONE (07:00)
[2017-02-06] MEDS ORDERED: morphine SULFATE/PF (10 MG/10 ML) INJ ONE (07:00)
[2017-02-06] MEDS: MAGNESIUM SULFATE 20 GM/500 ML 500 ML IV SCH (07:14)
[2017-02-06] MEDS: ACCU-CHEK XX SCH ×2 (07:30→11:00)
[2017-02-06] MEDS: FERROUS SULFATE (EC) 325 MG TAB PO SCH (08:54)
[2017-02-06] MEDS: POLYETHYLENE GLYCOL 17 GM PACKET PO SCH (08:54)
[2017-02-06] MEDS: DOCUSATE SODIUM 100 MG CAP PO SCH (08:54)
[2017-02-06] MEDS: MULTIVIT/MIN/FOLATE/IRON/PREN TAB PO SCH (08:54)
[2017-02-06] MEDS: LACTATED RINGER'S 1,000 ML IV SCH (09:58)
[2017-02-06] MEDS ORDERED: MAGNESIUM SULFATE 20 GM/500 ML 500 ML IV SCH (16:00)
[2017-02-06 16:51] VITALS: BP 104/59; PULSE 76; RESP 20
--- NOTE | 2017-02-06 17:10 | PN ---
Date/Time of Note Date/Time of Note DATE: 02/06/17 TIME: 17:06 OB Subjective Subjective Subjective feeling more than other day RN reported uc increased OB Objective Objective Objective EFM uc 4-6/hr\ VE 3cm membrane bulginh OB Assessment/Plan Other Assessment: iup 32weeks twin gestation PTL Other plan: transfer to L&D NPO increas mg to 2.5 re ck Mg level now add cervix 1cm by other RN RICH TURNER MD February 06, 2017 17:10
[2017-02-06] MEDS ORDERED: OXYTOCIN 30 UNITS/LR 500 ML IV PRN (18:30)
[2017-02-06] MEDS ORDERED: CARBOPROST 250 MCG INJ IM PRN (18:30)
[2017-02-06] MEDS ORDERED: CEFAZOLIN 2 GM/50 ML (PMX) 50 ML IV SCH (18:30)
[2017-02-06] MEDS ORDERED: METHYLERGONOVINE 0.2 MG INJ IM PRN (18:30)
[2017-02-06] MEDS ORDERED: OXYTOCIN 30 UNITS/LR 500 ML IV SCH (18:30)
[2017-02-06] MEDS ORDERED: MISOPROSTOL 200 MCG TAB PR PRN (18:30)
[2017-02-06] MEDS ORDERED: ONDANSETRON 4 MG INJ IV STA ×2 (19:41→19:42)
[2017-02-06] MEDS ORDERED: CITRIC ACID/NA CITRATE 30 ML CUP ONE (19:44)
[2017-02-06] MEDS ORDERED: LACTATED RINGER'S 1,000 ML IV ONE (20:00)
[2017-02-06] MEDS ORDERED: CITRIC ACID/SODIUM CITRATE 15 ML CUP PO ONE ×2 (20:00)
[2017-02-06] MEDS ORDERED: PHENYLephrine (100 MCG/ML) 5ML SYG ONE ×2 (20:21→20:59)
--- NOTE | 2017-02-06 20:39 | HP ---
Date/Time of Note Date/Time of Note DATE: 02/06/17 TIME: 20:23 OB - History Hx of Present Free Text/Dictation 37y.o A0 who had term delivery vaginally 2013 was admitted for short cervix which was 1.2 withut c/o uterine contractions on 12/21/16 for twin gestationa during the last almost 7weeks patient has been on X2 betamethasone including rescue dose and tocolysis with intermittent magnesium sulfate and procardia, indocin . for the labor upuntil today ,there wasnt significant uterine activitieswhich became more symptomatic and VE showed cervix dilated to be 5cm and membrane was bulging previous u/s showed br/br ,spoke to dr davey who agree to deliver primary section was prepared with proper consent signed. Chief Complaint: in labor Estimated Due Date: Apr 05, 2017 : 2 Para: 1 Spontaneous : 0 Therapeutic : 0 Care: Good Care Ultrasounds: Normal mid trimester US Obstetrical Complications: Gestational Diabetes, Other ( labor) Past Family/Social History * Past Medical, Surgical, Family and Obstetric Histories reviewed from chart. Blood Type: O+ Rubella: immune RPR/VDRL: Negative GBS Status: Unknown HBsAG: Negative OB Admission Exam Vital Signs Vital Signs Vital Signs Date Time Temp Pulse Resp B/P Pulse Ox O2 Delivery O2 Flow Rate FiO2 02/06/17 16:51 98.5 76 20 104/59 Physical Exam Cervical Dilatation: 5cm Station: -2 Membranes: Intact Amniotic Fluid: Unevaluable Heart Rate: 140's Accelerations: Accelerations Present Decelerations: No Decelerations Varibility: Moderate Contractions on Admission: 6-10 Minutes Apart Intensity: Moderate Last 72 hourBlood Glucose Bedside Glucose - 72 Hours Test 02/04/17 09:21 02/04/17 11:25 02/04/17 14:59 02/04/17 19:36 Bedside Glucose 82mg/dL (70-220) 102mg/dL (70-220) 82mg/dL (70-220) 121mg/dL (70-220) Test 02/05/17 08:21 02/05/17 10:58 02/05/17 15:29 02/05/17 19:31 Bedside Glucose 84mg/dL (70-220) 91mg/dL (70-220) 100mg/dL (70-220) 105mg/dL (70-220) Test 02/06/17 07:34 02/06/17 10:59 02/06/17 17:16 02/06/17 17:25 Bedside Glucose 91mg/dL (70-220) 110mg/dL (70-220) 85mg/dL (70-220) 90mg/dL (70-220) Last 72 hours Lab Results CBC & BMP 02/04/17 12:49 Liver Function Test 02/04/17 12:49 Alanine Aminotransferase (ALT/SGPT) 31 Albumin 3.3 Alkaline Phosphatase 138 H Aspartate Amino Transf (AST/SGOT) 20 Direct Bilirubin 0.00 Total Protein 6.9 Magnesium Level Test 02/04/17 05:27 02/04/17 18:13 02/05/17 06:20 02/05/17 18:16 Magnesium Level 6.1 *H 5.3 *H 6.0 *H 5.5 *H Test 02/06/17 06:03 02/06/17 17:15 Magnesium Level 6.0 *H 6.0 *H OB Assessment/Plan Other Assessment: twin gest ation br/b 31w6d with PTL A1DM Plan: Section RICH TURNER MD February 06, 2017 20:33
[2017-02-06] MEDS ORDERED: HYDROmorphONE 1 MG/ML SYG IV PRN ×2 (21:00)
[2017-02-06] MEDS ORDERED: MEPERIDINE 25 MG INJ IV PRN (21:00)
[2017-02-06] MEDS ORDERED: DIPHENHYDRAMINE 50 MG INJ IV PRN ×2 (21:00)
[2017-02-06] MEDS ORDERED: METOCLOPRAMIDE 10 MG INJ IV PRN (21:00)
[2017-02-06] MEDS ORDERED: KETOROLAC 30 MG INJ IV ONE (21:00)
[2017-02-06] MEDS ORDERED: PROCHLORPERAZINE 10 MG INJ IV PRN (21:00)
[2017-02-06] MEDS ORDERED: NALOXONE (0.4 MG/ML) INJ IV PRN (21:00)
[2017-02-06] MEDS ORDERED: HYDROmorphONE (0.2 MG/ML) 10ML SYG IV PRN ×3 (21:00)
[2017-02-06] MEDS ORDERED: FENTAnyl 50 MCG/ML VIAL IV PRN (21:00)
[2017-02-06] MEDS ORDERED: ONDANSETRON 4 MG INJ IV PRN ×2 (21:00)
[2017-02-06] MEDS ORDERED: EPHEDrine SULFATE 50 MG/5 ML SYG ONE (21:39)
--- NOTE | 2017-02-06 22:30 | DELSUM ---
Delivery Summary A-C Datetime Report Generated by CPN: 02/06/2017 22:30 DELIVERY PERSONNEL Plant Maintenance Technician: Lorenzana, Lauryn MATERNAL INFORMATION Delivery Anesthesia: Spinal Medications in Delivery: SEE ANESTHESIA RECORDS Estimated Blood Loss (ml): 500 Placenta Cultured: Yes Maternal Complications: Other Other Maternal Complications: GDM RN Comments: boy twins, short cervix, 31.5 weeks LABOR SUMMARY EDC: 04/05/2017 00:00 No. Babies in Womb: 2 Attempted: No Labor Anesthesia: None LABOR INFORMATION Reason for Induction: Not Applicable Onset of Labor: 02/06/2017 12:30 Oxytocin: N/A Group B Beta Strep: Not Done Antibiotics # of Doses: 1x Antibiotics Time of Last Dose: 02/06/2017 20:34 Steroids Given: Full Course; >24Hs before Delivery Reason Steroids Not Administered: Indication MEMBRANES Membranes Rupture Method: Artificial Rupture of Membranes: 02/06/2017 20:49 Length of Rupture (hr): 0.02 Amniotic Fluid Color: Clear Amniotic Fluid Amount: Moderate Amniotic Fluid Odor: None STAGES OF LABOR Stage 3 hr: 0 Stage 3 min: 3 Total Time in Labor hr: 8 Total Time in Labor min: 23 CSECTION DELIVERY Primary Indication: Multiple Gestation Secondary Indication: Breech Presentation CSection Urgency: Elective CSection Incidence: Primary Labor: Labor Elective: Elective CSection Incision: Lower Uterine Transverse Sterilization Procedure: [place] BABY A INFORMATION Infant Delivery Date/Time: 02/06/2017 20:50 Method of Delivery: Born in Route : No : N/A Forceps: N/A Vacuum Extraction: N/A Shoulder Dystocia : N/A SHOULDER DYSTOCIA BABY A Delivery Date/Time: 02/06/2017 20:50 PRESENTATION/POSITION BABY A Presentation: Breech Cephalic Presentation: N/A Breech Presentation: Double Footling PLACENTA INFORMATION BABY A Placenta Delivery Time : 02/06/2017 20:53 Placenta Method of Delivery: Manual Removal Placenta Status: Delivered SCORES BABY A Heart Rate 1 min: >100 bpm Resp Effort 1 min: Slow, Irregular Reflex Irritability 1 min: Grimace Muscle Tone 1 min: Some Flexion of Extrem Color 1 min: Blue/Pale Resuscitation Effort 1 min: Tactile Stimulation; PPV/NCPAP SCORE 1 MIN: 5 Heart Rate 5 min: >100 bpm Resp Effort 5 min: Slow, Irregular Reflex Irritability 5 min: Cough/Sneeze/Pulls Away Muscle Tone 5 min: Active Motion Color 5 min: Body [place], Extremit Blue Resuscitation Effort 5 min: Tactile Stimulation; PPV/NCPAP SCORE 5 MIN: 8 INFANT INFORMATION BABY A Gestational Age at Delivery: 31.5 Gestational Status: - <34 Weeks Infant Outcome : Liveborn Condition : Stable Sex: Male IDENTIFICATION/MEDS BABY A ID Band Number: [id number] ID Band Location: Right Leg; Left Arm Sensor Applied: No Sensor Number: N/A Sensor Location : Cord Clamp Vitamin K Given : Not Given Erythromycin Given: Not Given WEIGHT/LENGTH BABY A Infant Birthweight (gm): 1469 Weight (lb): 3 Weight (oz): 4 Length (in): 14.75 Length (cm): 37.47 CORD INFORMATION BABY A No. Cord Vessels: 3 Nuchal Cord : Around Neck x1, Loose Cord Blood Taken: Yes Suction: Mouth; Nose ASSESSMENT BABY A Complications: Other Complications- Other: twin a; Physical Findings at Delivery: Within Normal Limits Infant Respirations: Appears Normal Eligibility Services Representative/ALS Called : Yes Care By: SEE NICU FLOWSHEET Transferred To: NICU BABY B INFORMATION Delivery Date/Time: 02/06/2017 20:53 Method of Delivery : Born in Route : No : N/A Forceps : N/A Vacuum Extraction: N/A Shoulder Dystocia : No SHOULDER DYSTOCIA BABY B Delivery Date/Time: 02/06/2017 20:53 PRESENTATION/POSITION BABY B Presentation : Breech Cephalic Position : N/A Breech Position: Double Footling ROM/PLACENTA INFO BABY B Rupture of Membranes: 02/06/2017 20:49 Length of Rupture (hr): 0.07 Placenta Delivery Time : 02/06/2017 20:53 Placenta Method of Delivery: Manual Removal Placental Status : Delivered (Annotations: Data stored by [facility] on behalf of user) SCORES BABY B Heart Rate 1 min: >100 bpm Resp Effort 1 min: Slow, Irregular Reflex Irritability 1 min: Cough/Sneeze/Pulls Away Muscle Tone 1 min: Active Motion Color 1 min: Body [place], Extremit Blue Resuscitation Effort 1 min: Tactile Stimulation; PPV/NCPAP SCORE 1 MIN: 8 Heart Rate 5 min: >100 bpm Resp Effort 5 min: Good Cry Reflex Irritability 5 min: Cough/Sneeze/Pulls Away Muscle Tone 5 min: Active Motion Color 5 min: Body [place], Extremit Blue Resuscitation Effort 5 min: Tactile Stimulation; PPV/NCPAP SCORE 5 MIN: 9 INFANT INFORMATION BABY B Gestational Age at Delivery: 31.5 Gestational Status : - <34 Weeks Outcome : Liveborn Condition : Stable Sex : Male IDENTIFICATION/MEDS BABY B ID Band Number : [id number] ID Band Location : Right Leg; Left Arm Sensor Applied: No Sensor Number : N/A Sensor Location : Cord Clamp Vitamin K Given : Not Given Erythromycin Given : Not Given WEIGHT/LENGTH BABY B Birthweight (gm): 1315 Infant Weight (lb) : 2 Infant Weight (oz): 14 Infant Length (in): 15.00 Length (cm): 38.10 CORD INFORMATION BABY B No. Cord Vessels : 3 Nuchal Cord : N/A Cord Blood Taken : Yes Suction : Mouth; Nose ASSESSMENT BABY B Infant Complications : Other Infant Complications- Other: TWIN B- Physical Findings at Delivery: Within Normal Limits Infant Respirations : Appears Normal Eligibility Services Representative/ALS Called : Yes Care By : SEE NICU FLOWSHEET Transfer To: NICU
[2017-02-07] VITALS (9 sets, daily range): BP systolic 105–133; BP diastolic 59–70; PULSE 61–86; RESP 18
[2017-02-07] MEDS ORDERED: MISOPROSTOL 200 MCG TAB PR PRN (00:30)
[2017-02-07] MEDS ORDERED: METHYLERGONOVINE 0.2 MG INJ IM PRN (00:30)
[2017-02-07] MEDS ORDERED: CARBOPROST 250 MCG INJ IM PRN (00:30)
[2017-02-07] MEDS ORDERED: OXYTOCIN 30 UNITS/LR 500 ML IV PRN (00:30)
[2017-02-07] MEDS ORDERED: ZOLPIDEM 5 MG TAB PO PRN (00:30)
[2017-02-07] MEDS ORDERED: DIPHENHYDRAMINE 50 MG INJ IV PRN (00:30)
[2017-02-07] MEDS ORDERED: ONDANSETRON 4 MG INJ IV PRN (00:30)
[2017-02-07] MEDS ORDERED: LANOLIN 7 GM TUBE TOP PRN (00:30)
[2017-02-07] MEDS: KETOROLAC 30 MG INJ IV PRN ×3 (00:32→20:02)
--- NOTE | 2017-02-07 00:39 | OPR ---
DATE OF OPERATION: 02/06/2017 PREOPERATIVE DIAGNOSES: 1. 31 weeks 6 days with a twin gestation, were breech. 2. labor. 3. Gestational diabetes. POSTOPERATIVE DIAGNOSES: 1. 31 weeks 6 days with a twin gestation, were breech. 2. labor. 3. Gestational diabetes. 4. Delivered the normal male , twin A, 3 pounds 4 ounces; twin B, 2 pounds 14 ounces, Apgars 8, 9 and 5, 9. OPERATION PROCEDURE: Primary low transverse section, bilateral partial fimbriectomy. ANESTHESIOLOGIST: Faustino Mcnally MD ANESTHESIA: Spinal. SURGEON: Brad Isidro MD ORNAMENTAL IRONWORKER: Jose Das MD ESTIMATED BLOOD LOSS: Approximately 500 mL PROCEDURE: Under proper induction of spinal anesthesia, the patient was placed in the frog position . Moreau catheter was introduced under sterile conditions. Repositioned to supine. Abdominal wall was prepped and draped in usual aseptic manner. A Pfannenstiel incision was made. The incision was carried down through the subcutaneous tissue to fascia, which was incised transversely in length of the incision. Fascial flap was created by blunt and sharp dissection of tendinous attachment, rect us muscle split, and peritoneal cavity was entered. Transverse incision was made. Incision was mad e on the uterine serosa above the uterovesical reflection. Incision was carried down layer by layer until reached the amniotic membrane, ruptured, clear amniotic fluid. Incision was extended, and th e normal male infant was born from the footling breech with a routine assisted breech extrac tion. The baby born and the cord was delayed and actually milked down toward the fetus and clamped and handed to the receiving room clerk who was standing by for further care. Second membrane ruptured, colette ar amniotic fluid, and again the footling breech presentation with routine assisted breech extractio n. The baby was born, and the was 5 and 9, the first one was 8 and 9, and milking the cord bl ood toward the fetus and clamped and cut, handed to the receiving room clerk for further care. Cord blood was obtained from A and B, and the placenta was removed manually. Cavity was completely explored af ter uterus was exteriorized. Incision was closed using #1 chromic catgut in continuous manner, seco nd layer using 0 chromic catgut including uterine serosa. No bleeder was noted. Right fallopian tube was identified, which was grasped with Vichy forceps, and the distal part of the fallopian tube was tied with 0 plain, doubly ligated, and the section of fimbria was removed and sent to pathology. Left side which was identified, and there was a cystic mass which was approxima tely 2.5 cm in diameter and thick walled, and it seemed to be separate from the ovary and more likel y on the mesosalpinx, which was included with the distal portion of fallopian tube, and this was cut off from the proximal portion of tube and transfixed with 0 plain. In the lower pole of the ovary, there was some defect because of the separation from cystic structure which was removed and was rep aired and tied. No bleeder was noted. Procedure was completed. All the blood was removed from the operative field and the sponge count which was correct. After irrigation, parietal peritoneum was closed using 0 chromic catgut in continuous manner. Muscle closed with 0 chromic catgut in continuo us manner. Fascia closed with #1 Vicryl in continuous manner in 2 segments and subcutaneous tissue irrigated. This layer was approximated with 2-0 plain in continuous manner after adequate hemostasi s secured. Skin closed with 3-0 Monocryl in subcuticular manner. Steri-Strip applied. Pressure dr essing applied. Estimated blood loss approximately 500 mL. Urine output was 1500 mL. The patient withstood procedure well, sent to the recovery room in stable condition. Dictated By: BRAD MATOS/ARLETTE Conf#: [id number] DID#: [id number]
[2017-02-07] MEDS: LACTATED RINGER'S 1,000 ML IV SCH ×3 (01:39→20:30)
[2017-02-07 07:26] LABS: ADD SCAN DIFF NO
--- NOTE | 2017-02-07 07:44 | CONS ---
Date/Time of Note Date/Time of Note DATE: 02/07/17 TIME: 07:44 Consultation Date/Type/Reason Admit Date/Time Dec 20, 2016 at 15:20 Initial Consult Date 02/07/17 Type of Consultation: Anesthesiology Reason for Consultation Follow up 24 HR Interval Summary Free Text/Dictation Pt seen and examined at bedside is POD#1 s/p c/s for twin gestation in breech. Pt received spinal duramorph for post op pain control. She states she currently has minimal pain in her abdomen but is doing well. No N/V/D/C/COFFEY/Numbness. Will follow. Constitutional: improved, no complaints Exam/Review of Systems Vital Signs Vitals Vital Signs Date Time Temp Pulse Resp B/P Pulse Ox O2 Delivery O2 Flow Rate FiO2 02/07/17 04:00 97.9 70 18 114/67 Room Air Intake and Output 02/06/17 02/06/17 02/07/17 15:00 23:00 07:00 Intake Total 1225 ml 1625.0 ml 1000 ml Output Total 2500 ml 1100 ml Balance 1225 ml -875.0 ml -100 ml Results Result Diagram: 02/04/17 1249 02/04/17 1249 Results 24 hrs Laboratory Tests Test 02/06/17 10:59 02/06/17 17:15 02/06/17 17:16 02/06/17 17:25 Bedside Glucose 110 85 90 Magnesium Level 6.0 *H Medications Medications Current Medications Naloxone HCl (Narcan) 0.1 mg Q2M PRN IV FOR RESP RATE 8 OR LESS; Start at 21:00; Stop 02/07/17 at 20:59 Ketorolac Tromethamine (Toradol) 30 mg Q6H PRN IV PAIN Last administered on t 00:32; Admin Dose 30 MG; Start 02/06/17 at 21:00; Stop 02/07/17 at 20:59 Hydromorphone HCl (Dilaudid) 0.2 mg Q3H PRN IV PAIN LEVEL 1-5; Start 02/06/17 at 21:00; Stop 02/07/17 at 20:59 Hydromorphone HCl (Dilaudid) 0.4 mg Q3H PRN IV PAIN LEVEL 6-10; Start 02/06/17 at 21:00; Stop 02/07/17 at 20:59 Diphenhydramine HCl (Benadryl) 25 mg Q6H PRN IV ITCHING; Start 02/06/17 at 21: 00; Stop 02/07/17 at 20:59 Prochlorperazine (Compazine Inj) 10 mg ONCE PRN IV NAUSEA AND/OR VOMITING; Start 02/06/17 at 21:00; Stop 02/07/17 at 20:59 Oxycodone/ Acetaminophen (Percocet (5/ 325)) 1 tab Q4H PRN PO PAIN LEVEL 4-6; Start 02/07/17 at 21:00 Oxycodone/ Acetaminophen (Percocet (5/ 325)) 2 tab Q4H PRN PO PAIN LEVEL 7-10; Start 02/07/17 at 21:00 Ibuprofen (Motrin) 600 mg Q6 PO ; Start 02/08/17 at 00:00 Simethicone (Mylicon) 160 mg Q8H PRN PO DISTENSION/GAS/BLOATING; Start at 00:30 Senna/Docusate Sodium (Senokot-S) 1 tab BID PO ; Start 02/07/17 at 09:00 Diphtheria/ Tetanus/Acell Pertussis 0.5 ml 0.5 ml ONCE ONCE IM* ; Start at 09:00; Stop 02/09/17 at 09:01 Oxytocin/Lactated Ringer's 500 ml @ 0 mls/hr ONCE PRN IV For Hemorrhage Management; Start 02/07/17 at 00:30 Methylergonovine Maleate (Methergine) 0.2 mg ONCE PRN IM VAGINAL BLEEDING; Start 02/07/17 at 00:30 Carboprost Tromethamine (Hemabate) 250 mcg ONCE PRN IM VAGINAL BLEEDING; Start 02/07/17 at 00:30 Misoprostol (Cytotec) 1,000 mcg ONCE PRN HI VAGINAL BLEEDING; Start 02/07/17 at 00:30 Diphenhydramine HCl (Benadryl) 25 mg Q6H PRN IV PRURITUS; Start 02/07/17 at 00: 30 Ondansetron HCl (Zofran Inj) 4 mg Q6H PRN IV NAUSEA AND/OR VOMITING; Start at 00:30 Zolpidem Tartrate 10 mg 10 mg QHS PRN PO INSOMNIA; Start 02/07/17 at 00:30 Lactated Ringer's (Lr) 1,000 ml @ 125 mls/hr Q8H IV Last administered on t 01:39; Admin Dose 125 MLS/HR; Start 02/07/17 at 02:00; Stop 02/07/17 at 21: 00 JERROD PHILLIPS February 07, 2017 07:44
[2017-02-07 07:51] LABS: BASOPHILS % 0.2 % (0.0-2.0); EOSINOPHILS % 0.2 % (0.0-7.0); HEMATOCRIT 33.1 % (37.0-47.0); HEMOGLOBIN 10.9 g/dl (12.0-16.0); LYMPHOCYTES # 1.1 10^3/ul (0.8-2.9); LYMPHOCYTES % 10.6 % (15.0-51.0); MEAN CORPUSCULAR HEMOGLOBIN 30.8 pg (29.0-33.0); MEAN CORPUSCULAR HGB CONC 32.9 g/dl (32.0-37.0); MEAN CORPUSCULAR VOLUME 93.5 fl (82.0-101.0); MEAN PLATELET VOLUME 9.4 fl (7.4-10.4); MONOCYTE # 0.8 10^3/ul (0.3-0.9); MONOCYTES % 7.5 % (0.0-11.0); NEUTROPHIL # 8.4 10^3/ul (1.6-7.5); NEUTROPHILS % 80.9 % (39.0-77.0); PLATELET COUNT 211 10^3/UL (140-415); RED BLOOD COUNT 3.54 10^6/ul (4.20-5.40); RED CELL DISTRIBUTION WIDTH 13.1 % (11.5-14.5); WHITE BLOOD COUNT 10.4 10^3/ul (4.8-10.8)
[2017-02-07] MEDS: SENNA/DOCUSATE NA (8.6MG/50MG) TAB PO SCH ×2 (09:22→22:23)
--- NOTE | 2017-02-07 17:42 | PN ---
Date/Time of Note Date/Time of Note DATE: 02/07/17 TIME: 17:38 OB Subjective Subjective Subjective passing flatus no other c/o OB Objective Objective Objective vss afebrile abdomen soft wound dry lochia min calf no tenderness on calf OB Assessment/Plan Other Assessment: stable post primary section Other plan: as ordered RICH TURNER MD February 07, 2017 17:42
[2017-02-07] MEDS ORDERED: OXYCODONE/ACETAMINOPHEN (5/325) TAB PO PRN ×2 (21:00)
[2017-02-08 03:45] VITALS: BP 112/53; PULSE 67; RESP 18
[2017-02-08] MEDS: IBUPROFEN 600 MG TAB PO SCH ×5 (06:00→23:18)
[2017-02-08] MEDS: SENNA/DOCUSATE NA (8.6MG/50MG) TAB PO SCH ×2 (08:55→21:39)
[2017-02-08 09:00] VITALS: BP 112/72; PULSE 67
[2017-02-08 15:45] VITALS: BP_SYST 109; BP_SYST 118; BP_DIAS 75; BP_DIAS 81; PULSE 86; RESP 18
--- NOTE | 2017-02-08 18:09 | PN ---
Date/Time of Note Date/Time of Note DATE: 02/08/17 TIME: 18:06 OB Subjective Subjective Subjective no c/o urination ok OB Objective Objective Objective vss afebrile abdomen soft wound dry lochia min ext neg OB Assessment/Plan Other Assessment: satisfactory post vag delivery #0 Other plan: as ordered RICH TURNER MD February 08, 2017 18:09
[2017-02-08 20:00] VITALS: BP 106/62; PULSE 77; RESP 20
[2017-02-09 03:36] VITALS: BP 110/65; PULSE 70; RESP 20
[2017-02-09] MEDS: IBUPROFEN 600 MG TAB PO SCH ×3 (05:13→17:27)
[2017-02-09 08:50] VITALS: BP 105/65; PULSE 73; RESP 18
[2017-02-09] MEDS ORDERED: DIPHTH/TET/ACEL PERTUSS (ADULT) 0.5 ML VIAL IM* ONE (09:00)
[2017-02-09] MEDS: SENNA/DOCUSATE NA (8.6MG/50MG) TAB PO SCH (09:03)
--- NOTE | 2017-02-09 10:42 | PD.PPDC ---
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
--- NOTE | 2017-02-09 10:45 | DS ---
Date/Time of Note Date/Time of Note DATE: 02/09/17 TIME: 10:44 Obstetrical Discharge Record Final Diagnosis Final Diagnosis: delivered Section Section: Primary Complications Tocolytics: Magnesium Sulfate, Other (indocin , procardia) Condition on Discharge Physical Assessment Last Vitals: vss afebrile Voiding: Yes Bowel Movement: Yes Breast: Soft, non-tender Fundus: Firm Abdomen and Incision: wound healing ok Calf Tenderness: No Patient Condition: Stable RICH TURNER MD February 09, 2017 10:45
[2017-02-09 15:45] VITALS: BP 108/62; PULSE 78; RESP 18
== END 2017-02-09 18:05 | disposition home or self-care (01) | DRG 765 ==
LOC: OBG 15:20 → L-D 02-06 15:22 → PP1 02-07 00:11 → EDSTATUS 04-02 15:20
PROVIDERS: ADMIT Obstetrics & Gynecology; ATTEND Obstetrics & Gynecology
PROC: 0U570ZZ Destruction of Bilateral Fallopian Tubes, Open Approach (ICD-10-PCS; 2017-02-06)
PROC: 10D00Z1 Extraction of Products of Conception, Low, Open Approach (ICD-10-PCS; principal; 2017-02-06 20:00)
DX: O26.872 Cervical shortening, second trimester (principal); O60.02 Preterm labor without delivery, second trimester; O30.042 Twin pregnancy, dichorionic/diamniotic, second trimester; O24.419 Gestational diabetes mellitus in pregnancy, unspecified control; O30.043 Twin pregnancy, dichorionic/diamniotic, third trimester; Z37.2 Twins, both liveborn; Z3A.24 24 weeks gestation of pregnancy; O99.282 Endocrine, nutritional and metabolic diseases complicating pregnancy, second trimester; E03.9 Hypothyroidism, unspecified; Z30.2 Encounter for sterilization; O32.8XX1 Maternal care for other malpresentation of fetus, fetus 1; O32.8XX2 Maternal care for other malpresentation of fetus, fetus 2; Z3A.31 31 weeks gestation of pregnancy
CPT/HCPCS: 76815; 76816; 76817; 76818; 80053; 81001; 81003; 82951; 82962; 83036; 83735; 84235; 84443; 85025; 85610; 85730; 86592; 86850; 86900; 86901; 86920; 87086; 87340; 88302; 88307; 90715; J0690; J0702; J1885; J2274; J2370; J2405; J2590; J3475; J7120

== ENCOUNTER 2019-07-07 15:35 | Emergency (ER) | payer MEDICAID ==
[~2019-07-07] VITALS: Ht 154.9 cm; Wt 61.4 kg
[~2019-07-07 15:35] MED LIST changes: +METF-849 PO; -METF500T4 PO; +NAPR-985 PO
[2019-07-07 15:41] VITALS: Ht 154.9 cm; Wt 61.4 kg
[2019-07-07] MEDS ORDERED: KETOROLAC 30 MG INJ IM STA (16:31)
[2019-07-07] MEDS ORDERED: ONDANSETRON (ODT) 4 MG TAB ODT STA (16:31)
[2019-07-07] MEDS ORDERED: ACETAMINOPHEN 500 MG TAB PO STA (18:11)
[2019-07-07 18:18] VITALS: BP 120/60; PULSE 74; RESP 18
== END 2019-07-07 18:19 | disposition home or self-care (01) ==
LOC: FTE 15:35
DX: R10.2 Pelvic and perineal pain (principal); Z79.84 Long term (current) use of oral hypoglycemic drugs
CPT/HCPCS: 76830; 76856; 80048; 81001; 81025; 85025; 87086; 96372; J1885; Z7502; Z7610